=== PATIENT | female | born 1975 | race African-American/Black ===

== ENCOUNTER 2016-06-23 09:39 | Emergency (ER) | payer MEDICAID ==
[~2016-06-23] VITALS: Ht 167.6 cm; Wt 63.5 kg
[~2016-06-23 09:39] MED LIST: HYDROCODON-ACE1 EA13 ORAL; NITROFURANTOIN100 M2 ORAL; NKM; PROTONIX40 MG ORAL; ZOFRAN ODT4 MG ORAL
[2016-06-23] MEDS ORDERED: Acetaminophen 500mg (ES) tab PO ONE (10:00)
[2016-06-23 10:15] VITALS: BP 115/73
--- NOTE | 2016-06-23 11:35 | Diagnostic Imaging Report ---
Indications: Headache, abrasion to left side of the forehead, blunt trauma Technique: Spiral images obtained through the facial bones. No IV contrast utilized. Multiplanar reconstructions were generated.Total dose length product 546 mGycm. CTDIvol(s) 28 mGy. Dose reduction achieved using automated exposure control Comparison: None Findings: A small gas bubble is seen in the soft tissues superior and lateral to the left orbit. There is some associated soft tissue swelling in the periorbital region. No underlying fracture is demonstrated. There is a fracture deformity of the nasal bone, involving the tip and the left side, which is minimally displaced. No associated nasal septal fracture. There is mild leftward nasal septal deviation anteriorly. No other evidence of acute fracture. No worrisome sinus opacification. The mandible is intact. There appear to be dental caries involving the left first maxillary premolar. The remainder of the dentition appears intact. The optic globes appear to be intact. Retroseptal orbits are unremarkable. The included intracranial structures are unremarkable. Impression: Evidence of left periorbital soft tissue laceration Slight left-sided and central nasal bone fracture deformity lay with clinical findings Dental caries of the left first maxillary premolar The CT scanner at [facility] is accredited by the [employer] and the scans are performed using protocols designed to limit radiation exposure to as low as reasonably achievable to attain images of sufficient resolution adequate for diagnostic evaluation.
[2016-06-23 11:58] VITALS: BP 120/75
[2016-06-23] MEDS ORDERED: IBUPROFEN600 MG ORAL (12:20)
[2016-06-23] MEDS ORDERED: HM DOUBLE ANT28.4 G1 TP (12:20)
[2016-06-23] MEDS ORDERED: ACETAMINOPHEN-1 EAC1 ORAL (12:20)
[2016-06-23 12:25] VITALS: BP 120/75
--- NOTE | 2016-06-23 13:32 | Diagnostic Imaging Report ---
Indication: H/A head trauma Technique: Continuous helical CT scanning of the head was performed without intravenous contrast material. Axial and coronal 5 mm sections were generated. Radiation dose was minimized using automated exposure control Dose: Total Dose Length Product - DLP [address] Dose Index - CTDIvol(s) 70.38 mGy. Comparison: None Findings: The ventricular system is normal in size and configuration. There is no shift of midline structures. No abnormal extra-axial fluid collections are noted. There is no evidence of intracerebral bleeding. No other abnormal high or low density areas are noted within the brain. A small gas bubble is seen in the left periorbital soft tissues, consistent with penetrating trauma. Impression: Negative for acute intracranial bleed or mass effect. Evidence of left periorbital soft tissue trauma The CT scanner at [facility] is accredited by the [employer] and the scans are performed using protocols designed to limit radiation exposure to as low as reasonably achievable to attain images of sufficient resolution adequate for diagnostic evaluation.
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
== END 2016-06-23 12:25 | disposition home or self-care (01) ==
LOC: EMR 10:31
DX: S02.2XXA Fracture of nasal bones, initial encounter for closed fracture (principal); S00.212A Abrasion of left eyelid and periocular area, initial encounter; Y04.2XXA Assault by strike against or bumped into by another person, initial encounter; Y92.009 Unspecified place in unspecified non-institutional (private) residence as the place of occurrence of the external cause; K02.9 Dental caries, unspecified
CPT/HCPCS: 70450; 70486; 99284

== ENCOUNTER 2016-10-18 21:52 | Emergency (ER) | payer MEDICAID ==
[~2016-10-18] VITALS: Ht 167.6 cm; Wt 65.8 kg
[~2016-10-18 21:52] MED LIST changes: +ACETAMINOPHEN-1 EAC1 ORAL; +HM DOUBLE ANT28.4 G1 TP; +IBUPROFEN600 MG ORAL
[2016-10-18 22:21] VITALS: BP 95/64
[2016-10-18] MEDS ORDERED: Morphine Sulfate 4mg/ml Inj IVP ONE (22:30)
--- NOTE | 2016-10-18 22:37 | Emergency Room Report ---
History of Present Illness General Chief Complaint: Abdominal Pain Source: Patient Present Illness HPI Is a 40-year-old female with no significant past medical history except for one episode pancreatitis in the past. She presents with chief complaint abdominal pain. Onset was 6 hours ago. Gradual in nature. No localized to the right lower caught her in. Has nausea but no vomiting. Small amount of diarrhea. Pain is crampy and sharp. 8/10. No radiation. Nothing made it better. Nothing made it worse. No appetite. Did not eat dinner. Allergies: Coded Allergies: No Known Allergies (Unverified , 01/01/13) Patient History Past Medical History: see triage record, old chart reviewed Past Surgical History: other Pertinent Family History: none Social History: Reports: alcohol use Last Menstrual Period: 10/12/16 Now: No Immunizations: other Reviewed Nursing Documentation: PMH: Agreed, PSxH: Agreed Nursing Documentation-PMH Past Medical History: No History, Except For Hx Cardiac Problems: No Hx Cancer: No Hx Neurological Problems: No Review of Systems Eye: Denies: blurred vision, eye pain ENT: Denies: ear pain, nose congestion, throat swelling Respiratory: Denies: cough, shortness of breath Cardiovascular: Denies: chest pain, palpitations Gastrointestinal: Reports: abdominal pain, Denies: diarrhea, nausea, vomiting Musculoskeletal: Denies: back pain, joint pain Skin: Denies: rash Neurological: Denies: headache, numbness Endocrine: Denies: increased thirst, increased urine Hematologic/Lymphatic: Denies: easy bruising All Other Systems: negative except mentioned in HPI Physical Exam Vital Signs Date Time Temp Pulse Resp B/P Pulse Ox O2 Delivery O2 Flow Rate FiO2 10/18/16 22:02 98.2 78 20 95/64 97 Room Air vitals unremarkable Sp02 EP Interpretation: reviewed, normal General Appearance: well appearing, no apparent distress, alert Head: normocephalic, atraumatic Eyes: bilateral eye EOMI, bilateral eye PERRL ENT: hearing grossly normal, normal pharynx Neck: full range of motion, supple, no meningismus Respiratory: chest non-tender, lungs clear, normal breath sounds Cardiovascular #1: regular rate, rhythm, no murmur Gastrointestinal: normal bowel sounds, no mass, no organomegaly, no bruit, non- distended, tenderness - Right lower quadrant Musculoskeletal: back normal, gait/station normal, normal range of motion Psychiatric: mood/affect normal Skin: warm/dry Medical Decision Making Diagnostic Impression: Primary Impression: Abdominal pain of unknown etiology Additional Impression: UTI (lower urinary tract infection) ER Course Patient with abdominal pain. This may be an a descending UTI. No evidence of appendicitis. Pain is better now. She is tolerating by mouth challenge. No evidence of acute abdomen. We'll discharge home. Lab Results Impression labs unremarkable Last Vital Signs Date Time Temp Pulse Resp B/P Pulse Ox O2 Delivery O2 Flow Rate FiO2 10/18/16 22:21 98.2 78 20 95/64 97 Room Air Status: improved Disposition: HOME, SELF-CARE Condition: Stable Scripts Ibuprofen* (MOTRIN*) 600 Mg Tablet 600 MG ORAL THREE TIMES A DAY, #30 TAB 0 Refills Prov: CLEMENCIA MARIN M.D. 10/19/16 Cephalexin* (KEFLEX*) 500 Mg Capsule 500 MG ORAL TID, #21 CAP 0 Refills Prov: CLEMENCIA MARIN M.D. 10/19/16 Additional Instructions: Followup with your DrPrabhakar in 2-3 days. Return if symptom worsen. CLEMENCIA MARIN M.D. Oct 18, 2016 22:37
[2016-10-18 22:50] LABS: BASOPHILS % (AUTO) 1.6 % (0.0-2.0); EOSINOPHILS % (AUTO) 2.1 % (0.0-3.0); LYMPHOCYTES % (AUTO) 27.7 % (20.0-45.0); MEAN CORPUSCULAR HGB CONC 32.8 G/DL (32.0-36.0); MEAN CORPUSCULAR VOLUME 91 FL (80-99); MEAN PLATELET VOLUME 7.5 FL (6.5-10.1); MONOCYTES % (AUTO) 10.6 % (1.0-10.0); NEUTROPHILS % (AUTO) 57.9 % (45.0-75.0); PLATELET COUNT 202 K/UL (150-450); RED BLOOD COUNT 4.02 M/UL (4.20-5.40); RED CELL DISTRIBUTION WIDTH 12.1 % (11.6-14.8); WHITE BLOOD COUNT 8.6 K/UL (4.8-10.8)
[2016-10-18 23:00] VITALS: BP 104/59
[2016-10-18 23:00] LABS: APPEARANCE,URINE CLEAR; KETONES,URINE 1+ (NEGATIVE); LEUKOCYTE ESTERASE ,URINE 3+ (NEGATIVE); NITRITE,URINE NEGATIVE (NEGATIVE); PH,URINE 5 (4.5-8.0); PROTEIN,URINE 3+ (NEGATIVE); UROBILINOGEN,URINE NORMAL MG/DL (0.0-1.0)
[2016-10-18 23:02] LABS: ALANINE AMINOTRANSFERASE 15 U/L (3-33); ALBUMIN/GLOBULIN RATIO 1.6 (1.0-2.7); ANION GAP 13 (5-15); ASPARTATE AMINO TRANSFERASE 19 U/L (5-40); CALCIUM 9.2 mg/dL (8.6-10.2); CARBON DIOXIDE 24 mEQ/L (20-30); CHLORIDE 101 mEQ/L (98-107); CREATININE 0.8 mg/dL (0.5-0.9); GLOMERULAR FILTRATION RATE > 60 mL/min (>60); HEMOLYSIS 3; LIPASE 28 U/L (< 60); POTASSIUM 3.6 mEQ/L (3.4-4.9); SODIUM 138 mEQ/L (135-145); TOTAL PROTEIN 6.7 g/dL (6.6-8.7)
[2016-10-18 23:08] LABS: BACTERIA,URINE MODERATE /HPF; RBC,URINE 20-30 /HPF (0 - 2); SQUAMOUS EPITHELIAL CELL,UR FEW /LPF (NONE/OCC); WBC,URINE 15-20 /HPF (0 - 2)
[2016-10-18] MEDS ORDERED: cefTRIAXone 1 GM in NS 55 ML IVPB ONE (23:30)
[2016-10-19] MEDS ORDERED: IBUPROFEN600 MG ORAL (01:00)
[2016-10-19] MEDS ORDERED: KEFLEX500 MG ORAL (01:00)
[2016-10-19 01:09] VITALS: BP 104/59
[2016-10-19 01:10] VITALS: BP 104/59
--- NOTE | 2016-10-19 10:05 | Diagnostic Imaging Report ---
Indications: Abdominal pain Technique: Continuous helical CT imaging of the abdomen and pelvis was performed with automatic exposure control following administration of nonionic IV contrast only, on a Siemens sensation [address] scanner. Axial, coronal, sagittal images were reconstructed at 5 mm slice thickness. No oral contrast was administered per requesting physician's order, despite no contraindications listed in either submitted clinical data or tech note.. CTDI volume(s): 14 mGy Total DLP: 720 mGy-cm Findings: Comparison: None Lack of oral contrast limits evaluation of gastrointestinal tract, nondilated throughout. Mural thickening of one or more distal small bowel loops not excludable. Appendix unremarkable. Limited evaluation of left-sided colon due to poor distention. No adjacent stranding, extraluminal gas or fluid collections identified, aside from minimal pelvic free fluid. Heterogeneous uterine myometrium. 1 cm cystic-appearing lesion left adnexal region with mild adjacent free fluid. Scattered arterial mural calcification without obvious flow-limiting stenosis or occlusion. Liver, gallbladder, pancreas, spleen, adrenal glands, kidneys, unopacified ureters and urinary bladder, right adnexal region, retroperitoneum, mesentery, remainder visualized abdominopelvic anatomy unremarkable. Small pleural-based linear densities in both lung bases. No focal skeletal abnormalities are identified. IMPRESSION: Questionable distal small bowel wall thickening-query enteritis. Left adnexal cystic lesion likely physiologic ovarian Minimal pelvic free fluid, may be due to either of above uterine myometrial heterogeneity, nonspecific. Consider fibroids, adenomyosis, inflammation. Correlate clinically. Consider ultrasound correlation. This finding not described in [facility] preliminary report, minor discrepancy. No other evidence of acute abdominopelvic disease, with limitation as described. Subtle but potentially significant abnormalities the gastrointestinal tract may be missed. Repeat CT scan with full oral and IV contrast preparation recommended for more complete evaluation, as clinically indicated Minimal pulmonary bibasal subsegmental atelectasis This otherwise correlates with [facility] preliminary report.
== END 2016-10-19 01:10 | disposition home or self-care (01) ==
LOC: EMR 22:15
DX: R10.9 Unspecified abdominal pain (principal); N39.0 Urinary tract infection, site not specified
CPT/HCPCS: 36415; 74177; 80053; 81003; 81025; 83690; 85025; 85610; 85730; 87086; 87181; 96374; 96375; 99284; J0696; J2270; J2405; Q9967

== ENCOUNTER 2016-12-09 10:19 | Emergency (ER) | payer MEDICAID ==
[~2016-12-09] VITALS: Ht 167.6 cm; Wt 65.8 kg
[~2016-12-09 10:19] MED LIST changes: +KEFLEX500 MG ORAL
[2016-12-09] MEDS ORDERED: NKM (10:32)
[2016-12-09 10:56] VITALS: BP 115/82
[2016-12-09 11:17] VITALS: BP 115/82
--- NOTE | 2016-12-09 12:16 | Emergency Room Report ---
History of Present Illness General Chief Complaint: Vaginal Source: Patient Present Illness HPI 40-year-old female no significant past medical history presenting with bump to the left side of the vagina for 3 days. States that she randomly noticed it, however denies any pain fever purulent drainage. Patient states that she is out of town and does want to get checked. No history of STDs, monogamous with one partner for many years Allergies: Coded Allergies: No Known Allergies (Unverified , 01/01/13) Patient History Past Medical History: see triage record Past Surgical History: none Pertinent Family History: none Last Menstrual Period: 11/22/2016 Reviewed Nursing Documentation: PMH: Agreed, PSxH: Agreed Nursing Documentation-PMH Past Medical History: No Stated History Hx Cardiac Problems: No Hx Cancer: No Hx Neurological Problems: No Review of Systems All Other Systems: negative except mentioned in HPI Physical Exam Vital Signs Date Time Temp Pulse Resp B/P (MAP) Pulse Ox O2 Delivery O2 Flow Rate FiO2 12/09/16 10:29 98.8 73 16 115/82 99 Room Air Sp02 EP Interpretation: reviewed, normal General Appearance: normal inspection, well appearing, no apparent distress, alert, GCS 15, non-toxic Head: normocephalic, atraumatic Eyes: bilateral eye normal inspection, bilateral eye PERRL, bilateral eye EOMI ENT: normal ENT inspection, normal pharynx, normal voice, moist mucus membranes Neck: normal inspection, full range of motion, supple Respiratory: normal inspection, lungs clear, normal breath sounds, no respiratory distress, no retraction, no wheezing, speaking full sentences, chest symmetrical Cardiovascular #1: normal inspection, regular rate, rhythm, no edema, normal capillary refill Cardiovascular #2: 2+ radial (R), 2+ radial (L) Gastrointestinal: normal inspection, non tender, soft, non-distended, no guarding Genitourinary: other - Left upper labia majora, with a 1 cm mobile rubbery mass , nontender, and no overlying erythema Musculoskeletal: normal inspection, back normal, normal range of motion, non- tender Neurologic: normal inspection, alert, oriented x3, responsive, motor strength/ tone normal, sensory intact, normal gait, speech normal Psychiatric: normal inspection, judgement/insight normal, memory normal Skin: normal inspection, normal color, no rash, warm/dry, well hydrated, normal turgor Medical Decision Making Diagnostic Impression: Primary Impression: Cyst of vagina ER Course 40-year-old female with left labia majora pump DDX: Appears to be a benign cyst versus lipoma at this time does not appear to be an abscess Plan: No intervention ER course: Patient has remained stable during ED stay. Disposition: Patient is to be discharged to home. Patient is instructed to follow up with their primary care doctor within 5 days. Patient is instructed to follow up with [facility] within 3 days. Strict return precautions discussed with patient such as fever, chills, worsening/severe pain, nausea, vomiting, which may indicate severe illness. Patient verbalizes understanding and agrees with plan. Please note that this Emergency Department Report was dictated using [employer] specialty foreign food technology software, occasionally this can lead to erroneous entry secondary to interpretation by the dictation equipment Last Vital Signs Date Time Temp Pulse Resp B/P (MAP) Pulse Ox O2 Delivery O2 Flow Rate FiO2 12/09/16 11:17 98.8 78 16 115/82 99 Room Air Disposition: HOME, SELF-CARE Condition: Stable Referrals: [facility],REFERRING (PCP) Patient Instructions: Bartholin Cyst or Abscess Additional Instructions: Please followup with your [facility] in one week Van Serrano M.D. Dec 09, 2016 12:16
== END 2016-12-09 11:20 | disposition home or self-care (01) ==
LOC: EMR 11:05
DX: N89.8 Other specified noninflammatory disorders of vagina (principal)
CPT/HCPCS: 99282

== ENCOUNTER 2016-12-16 10:42 | Emergency (ER) | payer MEDICAID ==
[~2016-12-16] VITALS: Ht 167.6 cm; Wt 65.8 kg
[2016-12-16 11:06] VITALS: BP 114/80
[2016-12-16 11:38] VITALS: BP 114/80
--- NOTE | 2016-12-16 13:26 | Emergency Room Report ---
History of Present Illness General Chief Complaint: Skin Rash/Abscess Source: Patient, Medical Record Present Illness HPI 40-year-old female no significant past history presenting with lumps in back of scalp and right arm for a few days. Patient states they're painful. No purulent drainage. States that she shaves her underarms. No fever or chills Allergies: Coded Allergies: No Known Allergies (Unverified , 01/01/13) Patient History Past Medical History: see triage record Past Surgical History: none Pertinent Family History: none Last Menstrual Period: 11/22/16 Reviewed Nursing Documentation: PMH: Agreed, PSxH: Agreed Nursing Documentation-PM Past Medical History: No History, Except For Hx Cardiac Problems: No Hx Cancer: No Hx Neurological Problems: No Review of Systems All Other Systems: negative except mentioned in HPI Physical Exam Vital Signs Date Time Temp Pulse Resp B/P (MAP) Pulse Ox O2 Delivery O2 Flow Rate FiO2 12/16/16 10:50 97.5 86 18 114/80 100 Room Air Sp02 EP Interpretation: reviewed, normal General Appearance: normal inspection, well appearing, no apparent distress, alert, GCS 15, non-toxic Head: normocephalic, atraumatic Eyes: bilateral eye normal inspection, bilateral eye PERRL, bilateral eye EOMI ENT: normal ENT inspection, normal pharynx, normal voice, moist mucus membranes Neck: normal inspection, full range of motion, supple Respiratory: normal inspection, lungs clear, normal breath sounds, no respiratory distress, no retraction, no wheezing, speaking full sentences, chest symmetrical Cardiovascular #1: normal inspection, regular rate, rhythm, no edema, normal capillary refill Cardiovascular #2: 2+ radial (R), 2+ radial (L) Gastrointestinal: normal inspection, non tender, soft, non-distended, no guarding Musculoskeletal: normal inspection, back normal, normal range of motion, non- tender Neurologic: normal inspection, alert, oriented x3, responsive, motor strength/ tone normal, sensory intact, normal gait, speech normal Psychiatric: normal inspection, judgement/insight normal, memory normal Skin: no rash, warm/dry, well hydrated, normal turgor, other - Tiny less than 1 cm abscess is noted right under arm, about 3, no purulent drainage, 1 1 x 1 cm abscess noted back of scalp, tender palpation, no purulent drainage Medical Decision Making Diagnostic Impression: Primary Impression: Abscess ER Course 40-year-old female with small abscesses noted right under arm and back of scalp Plan: None the emergency room At this time none of them are big enough for incision and drainage ER course: Patient has remained stable during ED stay. Disposition: Patient is to be discharged to home. Patient is instructed to follow up with their primary care doctor within 5 days for wound recheck Strict return precautions discussed with patient such as fever, chills, worsening/severe pain, nausea, vomiting, which may indicate severe illness. Patient verbalizes understanding and agrees with plan. Please note that this Emergency Department Report was dictated using [employer] receiver technology software, occasionally this can lead to erroneous entry secondary to interpretation by the dictation equipment Last Vital Signs Date Time Temp Pulse Resp B/P (MAP) Pulse Ox O2 Delivery O2 Flow Rate FiO2 12/16/16 11:38 97.5 75 18 114/80 100 Room Air Disposition: HOME, SELF-CARE Condition: Stable Referrals: [facility],REFERR[facility] (PCP) Patient Instructions: Abscess Additional Instructions: Please followup with your primary care doctor in one week Please followup with the grid trimmer Please return if you're having rapid spread of rash, purulent drainage, fever or chills Van Serrano M.D. Dec 16, 2016 13:26
== END 2016-12-16 11:40 | disposition home or self-care (01) ==
LOC: EMR 11:26
DX: L02.413 Cutaneous abscess of right upper limb (principal)
CPT/HCPCS: 99282

== ENCOUNTER 2017-03-03 00:43 | Emergency (ER) | payer MEDICAID ==
[~2017-03-03] VITALS: Ht 167.6 cm; Wt 63.5 kg
[2017-03-03 01:05] VITALS: BP 138/78
--- NOTE | 2017-03-03 02:46 | Emergency Room Report ---
History of Present Illness General Chief Complaint: Abdominal Pain Source: Medical Record Present Illness HPI Is a 40-year-old female well-known to this ER department. She presents with chief complaint of abdominal pain. She left prior to me seeing her. According to security, she got dropped off by [employer] at the corner of campus. She walked calmly to the ER triage area. She looked inside and then walked in and start doubling over screaming in pain. She was really histrionic. The ER was fully she cannot be taken back right away. She then walked outside without a problem. And came back and acting dramatically again. After waiting an hour half she decided to leave. I did not see the patient. Allergies: Coded Allergies: No Known Allergies (Unverified , 01/01/13) Patient History Past Medical History: see triage record, old chart reviewed Past Surgical History: other Pertinent Family History: none Social History: Denies: smoking Last Menstrual Period: Jan Immunizations: other Reviewed Nursing Documentation: PMH: Agreed, PSxH: Agreed Nursing Documentation-PMH Hx Cardiac Problems: No Hx Cancer: No Hx Neurological Problems: No Physical Exam Vital Signs Date Time Temp Pulse Resp B/P (MAP) Pulse Ox O2 Delivery O2 Flow Rate FiO2 03/03/17 00:49 98.2 105 16 138/78 96 Room Air Medical Decision Making Diagnostic Impression: Primary Impression: Abdominal pain Qualified Codes: R10.84 - Generalized abdominal pain Last Vital Signs Date Time Temp Pulse Resp B/P (MAP) Pulse Ox O2 Delivery O2 Flow Rate FiO2 03/03/17 00:49 98.2 105 16 138/78 96 Room Air Status: improved Disposition: LEFT W/OUT BEING SEEN Condition: Stable CLEMENCIA MARIN M.D. Mar 03, 2017 02:46
== END 2017-03-03 05:04 | disposition left against medical advice (07) ==
LOC: EMR 02:45
DX: R10.9 Unspecified abdominal pain (principal); Z53.21 Procedure and treatment not carried out due to patient leaving prior to being seen by health care provider
CPT/HCPCS: 99281

== ENCOUNTER 2017-04-16 16:03 | Emergency (ER) | payer MEDICAID ==
[~2017-04-16] VITALS: Ht 172.7 cm; Wt 58.5 kg
[2017-04-16 16:35] VITALS: BP 100/56
[2017-04-16] MEDS ORDERED: Acetaminophen 500mg (ES) tab ORAL ONE (17:00)
[2017-04-16 17:21] LABS: APPEARANCE,URINE SLIGHTLY CLOUDY; BILIRUBIN, URINE NEGATIVE (NEGATIVE); GLUCOSE, URINE (UA) NEGATIVE (NEGATIVE); KETONES,URINE 4+ (NEGATIVE); LEUKOCYTE ESTERASE ,URINE NEGATIVE (NEGATIVE); NITRITE,URINE NEGATIVE (NEGATIVE); PH,URINE 5 (4.5-8.0); PROTEIN,URINE 2+ (NEGATIVE); UROBILINOGEN,URINE 1 MG/DL (0.0-1.0)
[2017-04-16 17:22] LABS: COLOR,URINE YELLOW
[2017-04-16 17:31] LABS: BASOPHILS % (AUTO) 2.5 % (0.0-2.0); HEMATOCRIT 40.3 % (37.0-47.0); HEMOGLOBIN 13.4 G/DL (12.0-16.0); LYMPHOCYTES % (AUTO) 9.2 % (20.0-45.0); MEAN CORPUSCULAR VOLUME 87 FL (80-99); MONOCYTES % (AUTO) 12.6 % (1.0-10.0); NEUTROPHILS % (AUTO) 75.7 % (45.0-75.0); PLATELET COUNT 108 K/UL (150-450); RED BLOOD COUNT 4.61 M/UL (4.20-5.40); WHITE BLOOD COUNT 4.4 K/UL (4.8-10.8)
--- NOTE | 2017-04-16 17:35 | Emergency Room Report ---
History of Present Illness General Chief Complaint: Flu Like Symptoms Source: Patient Present Illness HPI 41-year-old female, history of hyperthyroidism, presenting with fever chills, left lower back pain, urinary frequency, cough. Patient states that she has had a dry cough. Taking left lower back pain. Nondistended any burning on urination. Denies any headache neck pain abdominal pain nausea vomiting or diarrhea. No chest pain or shortness of breath No leg weakness, no urinary retention, no history of IV drug abuse Allergies: Coded Allergies: No Known Allergies (Unverified , 01/01/13) Patient History Past Medical History: see triage record Past Surgical History: none Pertinent Family History: none Last Menstrual Period: 01/2018 Reviewed Nursing Documentation: PMH: Agreed, PSxH: Agreed Nursing Documentation-PMH Past Medical History: No History, Except For Hx Cardiac Problems: No - Hyperthyroidism Hx Hypertension: No Hx Pacemaker: No Hx Asthma: No Hx COPD: No Hx Diabetes: No Hx Cancer: No Hx Gastrointestinal Problems: Yes - Gastroenteritis,Pancreatitis Hx Dialysis: No History Of Psychiatric Problem: No Hx Neurological Problems: No Hx Cerebrovascular Accident: No Hx Seizures: No Review of Systems All Other Systems: negative except mentioned in HPI Physical Exam Vital Signs Date Time Temp Pulse Resp B/P (MAP) Pulse Ox O2 Delivery O2 Flow Rate FiO2 04/16/17 16:25 101.9 101 18 95/61 95 Room Air 101.8 Sp02 EP Interpretation: reviewed, normal General Appearance: alert, GCS 15, non-toxic, mild distress Head: normocephalic, atraumatic Eyes: bilateral eye normal inspection, bilateral eye PERRL, bilateral eye EOMI ENT: normal ENT inspection, normal pharynx, normal voice, moist mucus membranes Neck: normal inspection, full range of motion, supple Respiratory: normal inspection, lungs clear, normal breath sounds, no respiratory distress, no retraction, no wheezing, speaking full sentences, chest symmetrical Cardiovascular #1: normal inspection, regular rate, rhythm, normal capillary refill Cardiovascular #2: 2+ radial (R), 2+ radial (L) Gastrointestinal: normal inspection, non tender, soft, non-distended, no guarding Genitourinary: no CVA tenderness, no vertebral tenderness Musculoskeletal: normal inspection, back normal, normal range of motion, non- tender, other - nontender back Neurologic: normal inspection, alert, oriented x3, responsive, motor strength/ tone normal, sensory intact, normal gait, speech normal Psychiatric: normal inspection, judgement/insight normal, memory normal Skin: normal inspection, normal color, no rash, warm/dry, well hydrated, normal turgor Medical Decision Making Diagnostic Impression: Primary Impression: Viral syndrome Additional Impression: Flank pain ER Course 41-year-old female, fever chills, urinary frequency, left-sided back pain DDX: Pyelonephritis, UTI Viral syndrome Patient not exhibiting any neurological signs or symptoms to consider epidural abscess, cauda equina syndrome Plan: Obtain labs, ua, ucx Tylenol, IV fluids ER course: Patient has remained stable during ED stay. given tylenol nontoxic appearing ambulating in ED feels much better. conversing with family CT performed to r/o kidney stones. no stones or abnormalities DCed home Disposition: Patient is to be discharged to home. Strict return precautions discussed with patient such as fever, chills, worsening/severe pain, chest pain, SOB, nausea, vomiting, which may indicate severe illness. Patient verbalizes understanding and agrees with plan. Please note that this Emergency Department Report was dictated using [employer] director technology software, occasionally this can lead to erroneous entry secondary to interpretation by the dictation equipment Laboratory Tests Test 04/16/17 16:54 04/16/17 17:05 Urine Color Yellow Urine Appearance Slightly cloudy Urine pH 5 (4.5-8.0) Urine Specific [place] 1.025 (1.005-1.035) Urine Protein 2+ (NEGATIVE) H Urine Glucose (UA) Negative (NEGATIVE) Urine Ketones 4+ (NEGATIVE) H Urine Occult Blood 3+ (NEGATIVE) H Urine Nitrite Negative (NEGATIVE) Urine Bilirubin Negative (NEGATIVE) Urine Urobilinogen 1 MG/DL (0.0-1.0) H Urine Leukocyte Esterase Negative (NEGATIVE) Urine RBC 2-4 /HPF (0 - 2) H Urine WBC 2-4 /HPF (0 - 2) Urine Squamous Epithelial Cells Many /LPF (NONE/OCC) H Urine Bacteria Few /HPF (NONE) White Blood Count 4.4 K/UL (4.8-10.8) L Red Blood Count 4.61 M/UL (4.20-5.40) Hemoglobin 13.4 G/DL (12.0-16.0) Hematocrit 40.3 % (37.0-47.0) Mean Corpuscular Volume 87 FL (80-99) Mean Corpuscular Hemoglobin 29.0 PG (27.0-31.0) Mean Corpuscular Hemoglobin Concent 33.2 G/DL (32.0-36.0) Red Cell Distribution Width 11.0 % (11.6-14.8) L Platelet Count 108 K/UL (150-450) L Mean Platelet Volume 9.0 FL (6.5-10.1) Neutrophils (%) (Auto) 75.7 % (45.0-75.0) H Lymphocytes (%) (Auto) 9.2 % (20.0-45.0) L Monocytes (%) (Auto) 12.6 % (1.0-10.0) H Eosinophils (%) (Auto) 0.0 % (0.0-3.0) Basophils (%) (Auto) 2.5 % (0.0-2.0) H Sodium Level 137 MMOL/L (136-145) Potassium Level 3.3 MMOL/L (3.5-5.1) L Chloride Level 101 MMOL/L (98-107) Carbon Dioxide Level 26 MMOL/L (21-32) Anion Gap 10 mmol/L (5-15) Blood Urea Nitrogen 12 mg/dL (7-18) Creatinine 0.9 MG/DL (0.55-1.30) Estimate Glomerular Filtration Rate > 60 mL/min (>60) Glucose Level 110 MG/DL (74-106) H Calcium Level 9.2 MG/DL (8.5-10.1) Total Bilirubin 0.4 MG/DL (0.2-1.0) Aspartate Amino Transferase (AST) 48 U/L (15-37) H Alanine Aminotransferase (ALT) 41 U/L (12-78) Alkaline Phosphatase 88 U/L (46-116) Total Protein 7.7 G/DL (6.4-8.2) Albumin 3.8 G/DL (3.4-5.0) Globulin 3.9 g/dL Albumin/Globulin Ratio 1.0 (1.0-2.7) Last Vital Signs Date Time Temp Pulse Resp B/P (MAP) Pulse Ox O2 Delivery O2 Flow Rate FiO2 04/16/17 17:00 101.9 04/16/17 16:35 101 18 Room Air 04/16/17 16:35 100/56 99 Disposition: HOME, SELF-CARE Condition: Improved Referrals: [facility],REFERRING (PCP) Van Serrano M.D. Apr 16, 2017 17:35
[2017-04-16] MEDS ORDERED: Ketorolac 30mg Inj IV ONE (18:00)
[2017-04-16 18:10] LABS: ANION GAP 10 mmol/L (5-15); BLOOD UREA NITROGEN 12 mg/dL (7-18); CALCIUM 9.2 MG/DL (8.5-10.1); CARBON DIOXIDE 26 MMOL/L (21-32); CHLORIDE 101 MMOL/L (98-107); CREATININE 0.9 MG/DL (0.55-1.30); POTASSIUM 3.3 MMOL/L (3.5-5.1); SODIUM 137 MMOL/L (136-145)
[2017-04-16 18:15] LABS: ALANINE AMINOTRANSFERASE 41 U/L (12-78); ALBUMIN 3.8 G/DL (3.4-5.0); ALKALINE PHOSPHATASE 88 U/L (46-116); ASPARTATE AMINO TRANSFERASE 48 U/L (15-37); BILIRUBIN,TOTAL 0.4 MG/DL (0.2-1.0)
[2017-04-16 18:47] VITALS: BP 105/62
[2017-04-16 20:40] VITALS: BP 93/63
[2017-04-16 21:50] VITALS: BP 93/63
--- NOTE | 2017-04-17 09:40 | Diagnostic Imaging Report ---
Indication: Abdominal pain Technique: Continuous helical transaxial imaging of the abdomen and pelvis was obtained from the lung bases to the pubic symphysis. No intravenous contrast was administered. Coronal 2-D reformats were also obtained. Automatic Exposure Control was utilized. Total Dose length Product (DLP): 512.[address] Dose Index Volume (CTDIvol): 9.87 mGy Comparison: none Findings: There is a small amount of free fluid within the pelvis which could be physiologic. There is no nephrolithiasis or hydronephrosis. Mildly distended small bowel loops primarily fluid-filled noted throughout the abdomen. Findings could be due to enteritis or ileus. Please correlate clinically. Appendix is normal. Trace calcification of the arterial structures noted. At the left lung base there is a ill-defined infiltrate present. Pneumonia is suspected. Please correlate clinically. IMPRESSION: Possible gastroenteritis. Please correlate clinically. Pneumonia suspected left lung base. Please correlate clinically Other incidentals as above. [facility] has communicated the preliminary results to the Emergency Department. Their findings are largely concordant with this report. The CT scanner at [facility] is accredited by the [employer] and the scans are performed using dose optimization techniques as appropriate to a performed exam including Automatic Exposure control.
--- NOTE | 2017-04-17 11:30 | Diagnostic Imaging Report ---
Indication: Cough Comparison: None A single view chest radiograph was obtained. Findings: Bones are unremarkable. Heart size normal. Lungs are clear. IMPRESSION: No acute disease
== END 2017-04-16 21:50 | disposition home or self-care (01) ==
LOC: EMR 16:55
DX: M54.5 Low back pain (principal); B34.9 Viral infection, unspecified; E05.90 Thyrotoxicosis, unspecified without thyrotoxic crisis or storm
CPT/HCPCS: 36415; 71045; 74176; 80053; 81003; 85025; 96361; 96374; 99284; J1885

== ENCOUNTER → 2018-04-01 | Emergency (ER) | payer MEDICAID ==
[~2018-04-01] VITALS: Ht 167.6 cm; Wt 63.5 kg
[~2018-04-01] MED LIST changes: +ALPRAZOLAM0.25 MG ORAL; +ZOFRAN4 MG ORAL
[2018-04-01 20:51] VITALS: BP 131/70
--- NOTE | 2018-04-01 21:06 | Emergency Room Report ---
History of Present Illness General Chief Complaint: Abdominal Pain Source: Patient Present Illness HPI 42-year-old female well-known to this ER. She's been here multiple times in the past. She presents with chief complaint abdominal pain. She was here earlier for multiple different complaints. She's been here for the same thing with abdominal pain. She said she felt nauseous. No nausea no vomiting. No fever or chills. She said she has a history of pancreatitis but her lipase in the past was barely elevated. Denies any other complaint. Allergies: Coded Allergies: No Known Allergies (Unverified , 01/01/13) Patient History Past Medical History: see triage record, old chart reviewed Past Surgical History: none Pertinent Family History: none Social History: Denies: smoking Last Menstrual Period: 02/2017 Now: No Immunizations: other Reviewed Nursing Documentation: PMH: Agreed; PSxH: Agreed Nursing Documentation-PMH Past Medical History: No History, Except For Hx Cardiac Problems: No - Hyperthyroidism Hx Hypertension: No Hx Pacemaker: No Hx Asthma: No Hx COPD: No Hx Diabetes: No Hx Cancer: No Hx Gastrointestinal Problems: Yes - Gastroenteritis,Pancreatitis Hx Dialysis: No Hx Neurological Problems: No Hx Cerebrovascular Accident: No Hx Seizures: No Review of Systems Eye: Denies: eye pain, blurred vision ENT: Denies: ear pain, nose congestion, throat swelling Respiratory: Denies: cough, shortness of breath Cardiovascular: Denies: chest pain, palpitations Gastrointestinal: Reports: abdominal pain; Denies: diarrhea, nausea, vomiting Musculoskeletal: Denies: back pain, joint pain Skin: Denies: rash Neurological: Denies: headache, numbness Endocrine: Denies: increased thirst, increased urine Hematologic/Lymphatic: Denies: easy bruising All Other Systems: negative except mentioned in HPI Physical Exam Vital Signs Date Time Temp Pulse Resp B/P (MAP) Pulse Ox O2 Delivery O2 Flow Rate FiO2 04/01/18 20:44 98.2 47 24 137/71 95 Room Air vitals normal Sp02 EP Interpretation: reviewed, normal General Appearance: well appearing, no apparent distress, alert, other - Very histrionic Head: normocephalic, atraumatic Eyes: bilateral eye PERRL, bilateral eye EOMI ENT: hearing grossly normal, normal pharynx Neck: full range of motion, supple, no meningismus Respiratory: chest non-tender, lungs clear, normal breath sounds Cardiovascular #1: regular rate, rhythm, no murmur Gastrointestinal: normal bowel sounds, non tender, no mass, no organomegaly, no bruit, non-distended Musculoskeletal: back normal, gait/station normal, normal range of motion Psychiatric: mood/affect normal Skin: warm/dry Medical Decision Making Diagnostic Impression: Primary Impression: Abdominal pain of unknown etiology ER Course Patient presents with abdominal pain but on my exam she has no pain. Abdomen is soft. Good bowel sounds. No evidence of any acute abdomen. I suspect a psychiatric component for this pain. We'll discharge home. Last Vital Signs Date Time Temp Pulse Resp B/P (MAP) Pulse Ox O2 Delivery O2 Flow Rate FiO2 04/01/18 20:44 98.2 47 24 137/71 95 Room Air Status: unchanged Disposition: HOME, SELF-CARE Condition: Stable Scripts Ondansetron (Zofran) 4 Mg Tablet 4 MG ORAL Q6H PRN for Nausea & Vomiting, #15 TAB 0 Refills Prov: Graham Masterson MD 04/01/18 Patient Instructions: Abdominal Pain, Adult Additional Instructions: Follow-up with your doctor in 7 days. Return if worse. Graham Masterson MD Apr 01, 2018 21:06
[2018-04-01 21:15] VITALS: BP 132/73
== END | disposition home or self-care (01) ==
LOC: EMR 21:52
DX: R10.9 Unspecified abdominal pain (principal)
CPT/HCPCS: 99282

== ENCOUNTER 2018-04-02 04:33 | Inpatient (IN) | payer MEDICAID ==
[~2018-04-02] VITALS: Ht 167.6 cm; Wt 63.5 kg
[2018-04-02] MEDS ORDERED: NKM (04:46)
--- NOTE | 2018-04-02 04:56 | Emergency Room Report ---
History of Present Illness General Chief Complaint: Abdominal Pain Source: Patient Present Illness HPI Is a 42-year-old female with history of anxiety and chronic abdominal pain. She presents with chief complaint abdominal pain with nausea and vomiting. She said she noticed some specks of blood. Pain is diffuse in nature. Also complaining of diarrhea. No fever chills but denies any new antibiotics or recent travel. Pain is 10 out of 10. [place] anxious. Allergies: Coded Allergies: No Known Allergies (Unverified , 01/01/13) Patient History Past Medical History: see triage record, old chart reviewed, psych hx Past Surgical History: other Pertinent Family History: none Social History: Denies: smoking Last Menstrual Period: feb 2017 Now: No Immunizations: other Reviewed Nursing Documentation: PMH: Agreed; PSxH: Agreed Nursing Documentation-PMH Hx Cardiac Problems: No - Hyperthyroidism Hx Hypertension: No Hx Pacemaker: No Hx Asthma: No Hx COPD: No Hx Diabetes: No Hx Cancer: No Hx Gastrointestinal Problems: Yes - Gastroenteritis,Pancreatitis Hx Dialysis: No Hx Neurological Problems: No Hx Cerebrovascular Accident: No Hx Seizures: No Review of Systems Eye: Denies: eye pain, blurred vision ENT: Denies: ear pain, nose congestion, throat swelling Respiratory: Denies: cough, shortness of breath Cardiovascular: Denies: chest pain, palpitations Gastrointestinal: Reports: abdominal pain, diarrhea, nausea, vomiting Musculoskeletal: Denies: back pain, joint pain Skin: Denies: rash Neurological: Denies: headache, numbness Endocrine: Denies: increased thirst, increased urine Hematologic/Lymphatic: Denies: easy bruising All Other Systems: negative except mentioned in HPI Physical Exam Vital Signs Date Time Temp Pulse Resp B/P (MAP) Pulse Ox O2 Delivery O2 Flow Rate FiO2 04/02/18 04:41 98.4 52 18 128/63 99 Room Air vitals normal Sp02 EP Interpretation: reviewed, normal General Appearance: well appearing, no apparent distress, alert Head: normocephalic, atraumatic Eyes: bilateral eye PERRL, bilateral eye EOMI ENT: hearing grossly normal, normal pharynx Neck: full range of motion, supple, no meningismus Respiratory: chest non-tender, lungs clear, normal breath sounds Cardiovascular #1: regular rate, rhythm, no murmur Gastrointestinal: normal bowel sounds, non tender, no mass, no organomegaly, no bruit, non-distended Musculoskeletal: back normal, gait/station normal, normal range of motion Neurologic: alert, oriented x3 Psychiatric: anxious Skin: warm/dry Medical Decision Making Diagnostic Impression: Primary Impression: Acute colitis Additional Impressions: Anxiety Intractable vomiting Qualified Codes: R11.2 - Nausea with vomiting, unspecified Abdominal pain Qualified Codes: R10.84 - Generalized abdominal pain ER Course She presents with abdominal pain and has leukocytosis. CT scan showed diffuse colitis. No evidence of acute abdomen or obstruction. Antibiotic started. Will admit versus transfer. Lab Results Impression labs with leukocytosis CT/MRI/US Diagnostic Results CT/MRI/US Diagnostic Results : Imaging Test Ordered: CT abdomen and pelvis Impression Read by radiologist. Diffuse colitis. Last Vital Signs Date Time Temp Pulse Resp B/P (MAP) Pulse Ox O2 Delivery O2 Flow Rate FiO2 04/02/18 04:41 98.4 52 18 128/63 99 Room Air Status: improved Disposition: ADMITTED INPATIENT Condition: Serious Referrals: [facility],REFERRING (PCP) Graham Masterson MD Apr 02, 2018 04:56
[2018-04-02] MEDS ORDERED: Pantoprazole Inj IVP ONE (05:00)
[2018-04-02 05:15] VITALS: BP 128/63
[2018-04-02 05:28] LABS: HEMOGLOBIN 12.7 G/DL (12.0-16.0); MEAN CORPUSCULAR VOLUME 86 FL (80-99); PLATELET COUNT 189 K/UL (150-450); RED BLOOD COUNT 4.43 M/UL (4.20-5.40); RED CELL DISTRIBUTION WIDTH 10.7 % (11.6-14.8); WHITE BLOOD COUNT 20.9 K/UL (4.8-10.8)
[2018-04-02 05:36] LABS: ANION GAP 13 mmol/L (5-15); BLOOD UREA NITROGEN 16 mg/dL (7-18); CALCIUM 9.5 MG/DL (8.5-10.1); CARBON DIOXIDE 25 MMOL/L (21-32); CHLORIDE 102 MMOL/L (98-107); CREATININE 1.2 MG/DL (0.55-1.30); POTASSIUM 3.2 MMOL/L (3.5-5.1); SODIUM 140 MMOL/L (136-145)
[2018-04-02 05:40] LABS: ALANINE AMINOTRANSFERASE 48 U/L (12-78); ALBUMIN 4.1 G/DL (3.4-5.0); ALBUMIN/GLOBULIN RATIO 1.1 (1.0-2.7); ALKALINE PHOSPHATASE 102 U/L (46-116); ASPARTATE AMINO TRANSFERASE 73 U/L (15-37); BILIRUBIN,TOTAL 0.9 MG/DL (0.2-1.0)
[2018-04-02 05:43] VITALS: BP 137/59
[2018-04-02] MEDS ORDERED: LORazepam Inj 2mg/ml 1ml IV ONE (05:45)
[2018-04-02] MEDS ORDERED: Ciprofloxacin 500mg tab ORAL ONE (06:15)
[2018-04-02 06:54] LABS: HEMATOCRIT 36.6 % (37.0-47.0); HEMOGLOBIN 12.2 G/DL (12.0-16.0); MEAN CORPUSCULAR VOLUME 86 FL (80-99); PLATELET COUNT 145 K/UL (150-450); RED BLOOD COUNT 4.27 M/UL (4.20-5.40)
[2018-04-02 08:18] VITALS: BP 130/60
[2018-04-02] MEDS ORDERED: Nitroglycerin Subl 0.4mg tab SL PRN (09:15)
[2018-04-02] MEDS ORDERED: Miralax 17gm pkt ORAL PRN (09:15)
[2018-04-02] MEDS ORDERED: Haloperidol 5mg/ml Inj IM ONE (09:15)
--- NOTE | 2018-04-02 09:15 | History and Physical Report ---
DATE OF ADMISSION: 04/02/2018 TIME: 8 a.m. CONSULTANTS: 1. Deborah Quinonez M.D. 2. Santos Brown M.D. 3. Slim Moncada M.D. CHIEF COMPLAINT: Abdominal pain, nausea, vomiting, diagnosed with colitis. BRIEF HISTORY: This is a 42-year-old female, who lives at home, presents for the increased abdominal pain with nausea, vomiting, and diarrhea, came to [place], diagnosed with colitis with white count 20 and being admitted to medical floor. Currently, calm in the ER gurney, oriented x3, slight distress secondary to pain and nausea. PAST MEDICAL HISTORY: Pancreatitis and anxiety. PAST SURGICAL HISTORY: None. ALLERGIES: Denies. MEDICATIONS: Include IV fluid, metronidazole, Cipro, lorazepam, Zofran, and pantoprazole. SOCIAL HISTORY: Positive smoke. Positive alcohol occasionally. No intravenous drug abuse. FAMILY HISTORY: Noncontributory. PHYSICAL EXAMINATION: GENERAL: Calm in bed, oriented x3, slight distress secondary to pain and nausea. VITAL SIGNS: Temperature is 98 degrees, pulse 60, respirations 20, and blood pressure 130/60. CARDIOVASCULAR: No murmur. LUNGS: Distant and clear. ABDOMEN: Bowel sounds positive. Soft, slightly tender. No guarding. No rigidity. No rebound. EXTREMITIES: No cyanosis, clubbing, or edema. NEUROLOGIC: The patient moves all extremities, slightly weak. LABORATORY AND DIAGNOSTIC DATA: Labs at this time show white count 20 and platelet 145, otherwise CBC is normal. BMP show potassium 3.2, glucose 149, AST 73, otherwise BMP is normal. Urinalysis is pending. Urine toxicology positive for marijuana. ASSESSMENT: 1. Abdominal pain, colitis, nausea, vomiting, diarrhea. 2. Leukocytosis. 3. Pancreatitis. 4. Anxiety. 5. Hypokalemia. PLAN: 1. Pain control. 2. NPO. 3. IV fluids. 4. Antibiotics per Infectious Disease. 5. Replace potassium. 6. CBC and BMP in morning. 7. Resume home medications. Jam Joseph D.O. DR: NATALIA/ELY JOB#: [id number] CC:
--- NOTE | 2018-04-02 09:29 | General Progress Note ---
Assessment/Plan Problem List: (1) Acute colitis ICD Codes: K52.9 - Noninfective gastroenteritis and colitis, unspecified SNOMED: 25849380, 381056281 (2) Anxiety ICD Codes: F41.9 - Anxiety disorder, unspecified SNOMED: 07936839 (3) Intractable vomiting ICD Codes: R11.10 - Vomiting, unspecified SNOMED: 994870424 (4) Panic attack ICD Codes: F41.0 - Panic disorder [episodic paroxysmal anxiety] without agoraphobia SNOMED: 536284214 Assessment/Plan stool studies ppi fu labs avoid cannabinoids needs psych eval EGD if needed Subjective ROS Limited/Unobtainable: Yes Allergies: Coded Allergies: No Known Allergies (Unverified , 01/01/13) Subjective very anxious Objective Last 24 Hour Vital Signs Date Time Temp Pulse Resp B/P (MAP) Pulse Ox O2 Delivery O2 Flow Rate FiO2 04/02/18 08:18 98.3 60 20 130/60 100 Room Air 04/02/18 05:43 98.4 45 17 137/59 100 Room Air 04/02/18 05:15 52 18 Room Air 04/02/18 05:15 98.4 45 18 128/63 99 Room Air 04/02/18 04:41 98.4 52 18 128/63 99 Room Air Intake and Output 04/01/18 04/02/18 19:00 07:00 Intake Total 1000 ml Balance 1000 ml Intake Oral 0 ml IV Total 1000 ml Laboratory Tests 04/02/18 05:00: White Blood Count 20.9#H, Red Blood Count 4.43, Hemoglobin 12.7, Hematocrit 38.0 , Mean Corpuscular Volume 86, Mean Corpuscular Hemoglobin 28.6, Mean Corpuscular Hemoglobin Concent 33.4, Red Cell Distribution Width 10.7L, Platelet Count 189, Mean Platelet Volume 8.7, Neutrophils (%) (Auto) , Lymphocytes (%) (Auto) , Monocytes (%) (Auto) , Eosinophils (%) (Auto) , Basophils (%) (Auto) , Differential Total Cells Counted 100, Neutrophils % ( Manual) 83H, Lymphocytes % (Manual) 10L, Monocytes % (Manual) 7, Eosinophils % ( Manual) 0, Basophils % (Manual) 0, Band Neutrophils 0, Platelet Estimate Adequate, Platelet Morphology Normal, Red Blood Cell Morphology Normal, Urine HCG, Qualitative Negative, Sodium Level 140, Potassium Level 3.2L, Chloride Level 102, Carbon Dioxide Level 25, Anion Gap 13, Blood Urea Nitrogen 16, Creatinine 1.2, Estimat Glomerular Filtration Rate 59.1, Glucose Level 149H, Calcium Level 9.5, Total Bilirubin 0.9, Aspartate Amino Transf (AST/SGOT) 73H, Alanine Aminotransferase (ALT/SGPT) 48, Alkaline Phosphatase 102, Total Protein 7.8, Albumin 4.1, Globulin 3.7, Albumin/Globulin Ratio 1.1, Lipase 96 04/02/18 06:02: Urine Opiates Screen Negative, Urine Barbiturates Screen Negative, Phencyclidine (PCP) Screen Negative, Urine Amphetamines Screen Negative, Urine Benzodiazepines Screen Negative, Urine Cocaine Screen Negative, Urine Marijuana (THC) Screen PositiveH 04/02/18 06:24: White Blood Count 20.0H, Red Blood Count 4.27, Hemoglobin 12.2, Hematocrit 36.6L , Mean Corpuscular Volume 86, Mean Corpuscular Hemoglobin 28.5, Mean Corpuscular Hemoglobin Concent 33.3, Red Cell Distribution Width 11.0L, Platelet Count 145L, Mean Platelet Volume 7.9, Neutrophils (%) (Auto) , Lymphocytes (%) (Auto) , Monocytes (%) (Auto) , Eosinophils (%) (Auto) , Basophils (%) (Auto) , Differential Total Cells Counted 100, Neutrophils % ( Manual) 83H, Lymphocytes % (Manual) 12L, Monocytes % (Manual) 5, Eosinophils % ( Manual) 0, Basophils % (Manual) 0, Band Neutrophils 0, Platelet Estimate Adequate, Platelet Morphology Normal, Red Blood Cell Morphology Normal, Urine Color [Pending], Urine Appearance [Pending], Urine pH [Pending], Urine Specific [place] [Pending], Urine Protein [Pending], Urine Glucose (UA) [Pending], Urine Ketones [Pending], Urine Blood [Pending], Urine Nitrite [Pending], Urine Bilirubin [Pending], Urine Urobilinogen [Pending], Urine Leukocyte Esterase [ Pending] Height (Feet): 5 Height (Inches): 6.00 Weight (Pounds): 140 General Appearance: alert EENT: normal ENT inspection Neck: supple Cardiovascular: tachycardia Respiratory/Chest: lungs clear Abdomen: normal bowel sounds, non tender, soft Extremities: non-tender Santos Brown MD Apr 02, 2018 09:29
[2018-04-02 11:30] VITALS: BP 124/7
--- NOTE | 2018-04-02 12:34 | Consultation ---
History of Present Illness General Date patient seen: Apr 02, 2018 Chief Complaint: Abdominal Pain Present Illness HPI 42 y/o F with hx of Anxiety, hyperthyroidisim, hx gastroenteritis and pancreatitis, chronic abd pain presents to ED on 04/02 with worsenign abd pain, nausea, vomiting and diarrhea. She noticed some specks of blood in the vomit. Pain is diffuse, 10/10 intensity. Upon admission noted to ahve WBC [address] Denies f/c, recent abx, recent travel Allergies: Coded Allergies: No Known Allergies (Unverified , 01/01/13) Medication History Scheduled No Known Medications* (NKM - No Known Medications*), 0 ., (Reported) Scheduled PRN Ondansetron (Zofran), 4 MG ORAL Q6H PRN for Nausea & Vomiting Discontinued Medications Alprazolam* (Xanax*), 0.5 MG ORAL DAILY PRN for For Anxiety Discontinued Reason: Therapy completed Cephalexin* (Keflex*), 500 MG ORAL TID Discontinued Reason: Therapy completed Ibuprofen* (Motrin*), 600 MG ORAL THREE TIMES A DAY Discontinued Reason: Therapy completed No Known Medications* (NKM - No Known Medications*), 0 ., (Reported) Discontinued Reason: Therapy completed Patient History Healthcare decision maker N Resuscitation status Full Code Advanced Directive on File No Patient History Narrative Pmhx: as above Shx: Positive smoke. Positive alcohol occasionally. No intravenous drug abuse. Fhx: non contributory Review of Systems All Other Systems: negative except mentioned in HPI Physical Exam Physical Exam Narrative GENERAL: Calm in bed, oriented x3, slight distress secondary to pain and nausea. CARDIOVASCULAR: No murmur. LUNGS: Distant and clear. ABDOMEN: Bowel sounds positive. Soft, slightly tender. No guarding. No rigidity. No rebound. EXTREMITIES: No cyanosis, clubbing, or edema. NEUROLOGIC: The patient moves all extremities, slightly weak. Last 24 Hour Vital Signs Date Time Temp Pulse Resp B/P (MAP) Pulse Ox O2 Delivery O2 Flow Rate FiO2 04/02/18 11:23 98.5 88 16 128/75 97 Room Air 04/02/18 08:18 98.3 60 20 130/60 100 Room Air 04/02/18 05:43 98.4 45 17 137/59 100 Room Air 04/02/18 05:15 52 18 Room Air 04/02/18 05:15 98.4 45 18 128/63 99 Room Air 04/02/18 04:41 98.4 52 18 128/63 99 Room Air Intake and Output 04/01/18 04/02/18 18:59 06:59 Intake Total 1000 ml Balance 1000 ml Intake Oral 0 ml IV Total 1000 ml Laboratory Tests Test 04/02/18 05:00 04/02/18 06:02 04/02/18 06:24 White Blood Count 20.9 K/UL (4.8-10.8) #H 20.0 K/UL (4.8-10.8) H Red Blood Count 4.43 M/UL (4.20-5.40) 4.27 M/UL (4.20-5.40) Hemoglobin 12.7 G/DL (12.0-16.0) 12.2 G/DL (12.0-16.0) Hematocrit 38.0 % (37.0-47.0) 36.6 % (37.0-47.0) L Mean Corpuscular Volume 86 FL (80-99) 86 FL (80-99) Mean Corpuscular Hemoglobin 28.6 PG (27.0-31.0) 28.5 PG (27.0-31.0) Mean Corpuscular Hemoglobin Concent 33.4 G/DL (32.0-36.0) 33.3 G/DL (32.0-36.0) Red Cell Distribution Width 10.7 % (11.6-14.8) L 11.0 % (11.6-14.8) L Platelet Count 189 K/UL (150-450) 145 K/UL (150-450) L Mean Platelet Volume 8.7 FL (6.5-10.1) 7.9 FL (6.5-10.1) Neutrophils (%) (Auto) % (45.0-75.0) % (45.0-75.0) Lymphocytes (%) (Auto) % (20.0-45.0) % (20.0-45.0) Monocytes (%) (Auto) % (1.0-10.0) % (1.0-10.0) Eosinophils (%) (Auto) % (0.0-3.0) % (0.0-3.0) Basophils (%) (Auto) % (0.0-2.0) % (0.0-2.0) Differential Total Cells Counted 100 100 Neutrophils % (Manual) 83 % (45-75) H 83 % (45-75) H Lymphocytes % (Manual) 10 % (20-45) L 12 % (20-45) L Monocytes % (Manual) 7 % (1-10) 5 % (1-10) Eosinophils % (Manual) 0 % (0-3) 0 % (0-3) Basophils % (Manual) 0 % (0-2) 0 % (0-2) Band Neutrophils 0 % (0-8) 0 % (0-8) Platelet Estimate Adequate Adequate Platelet Morphology Normal Normal Red Blood Cell Morphology Normal Normal Urine HCG, Qualitative Negative (NEGATIVE) Sodium Level 140 MMOL/L (136-145) Potassium Level 3.2 MMOL/L (3.5-5.1) L Chloride Level 102 MMOL/L (98-107) Carbon Dioxide Level 25 MMOL/L (21-32) Anion Gap 13 mmol/L (5-15) Blood Urea Nitrogen 16 mg/dL (7-18) Creatinine 1.2 MG/DL (0.55-1.30) Estimat Glomerular Filtration Rate 59.1 mL/min (>60) Glucose Level 149 MG/DL (74-106) H Calcium Level 9.5 MG/DL (8.5-10.1) Total Bilirubin 0.9 MG/DL (0.2-1.0) Aspartate Amino Transf (AST/SGOT) 73 U/L (15-37) H Alanine Aminotransferase (ALT/SGPT) 48 U/L (12-78) Alkaline Phosphatase 102 U/L (46-116) Total Protein 7.8 G/DL (6.4-8.2) Albumin 4.1 G/DL (3.4-5.0) Globulin 3.7 g/dL Albumin/Globulin Ratio 1.1 (1.0-2.7) Lipase 96 U/L (73-393) Urine Opiates Screen Negative (NEGATIVE) Urine Barbiturates Screen Negative (NEGATIVE) Phencyclidine (PCP) Screen Negative (NEGATIVE) Urine Amphetamines Screen Negative (NEGATIVE) Urine Benzodiazepines Screen Negative (NEGATIVE) Urine Cocaine Screen Negative (NEGATIVE) Urine Marijuana (THC) Screen Positive (NEGATIVE) H Urine Color Pending Urine Appearance Pending Urine pH Pending Urine Specific [place] Pending Urine Protein Pending Urine Glucose (UA) Pending Urine Ketones Pending Urine Blood Pending Urine Nitrite Pending Urine Bilirubin Pending Urine Urobilinogen Pending Urine Leukocyte Esterase Pending Height (Feet): 5 Height (Inches): 6.00 Weight (Pounds): 140 Medications Current Medications Medications (Trade) Dose Ordered Sig/Radha Route PRN Reason Start Time Stop Time Status Last Admin Dose Admin Acetaminophen (Tylenol) 650 mg Q4H PRN ORAL fever 04/02/18 09:15 05/02/18 09:14 Al Hydroxide/Mg Hydroxide (Mylanta II) 30 ml Q6H PRN ORAL dyspepsia 04/02/18 09:15 05/02/18 09:14 Dextrose (Dextrose 50%) 25 ml Q30M PRN IV Hypoglycemia 04/02/18 09:15 05/02/18 09:14 Dextrose (Dextrose 50%) 50 ml Q30M PRN IV Hypoglycemia 04/02/18 09:15 05/02/18 09:14 Dextrose/Sodium Chloride 1,000 ml @ 75 mls/hr [id number] IV 04/02/18 11:00 05/02/18 10:59 Diphenhydramine HCl (Benadryl) 25 mg Q6H PRN ORAL Itching/Pruritis 04/02/18 09:15 05/02/18 09:14 Heparin Sodium (Porcine) (Heparin 5000 units/ml) 5,000 units EVERY 12 HOURS SUBQ 04/02/18 21:00 05/02/18 20:59 Morphine Sulfate (Morphine Sulfate) 2 mg Q4H PRN IVP severe Pain (Pain Scale 7-10) 04/02/18 09:15 04/09/18 09:14 Nitroglycerin (Ntg) 0.4 mg Q5M PRN SL Prn Chest Pain 04/02/18 09:15 05/02/18 09:14 Ondansetron HCl (Zofran) 4 mg Q6H PRN IVP Nausea & Vomiting 04/02/18 09:15 05/02/18 09:14 Pantoprazole (Protonix) 40 mg EVERY 12 HOURS IV 04/02/18 21:00 05/02/18 20:59 Polyethylene Glycol (Miralax) 17 gm HSPRN PRN ORAL Constipation 04/02/18 09:15 05/02/18 09:14 Temazepam (Restoril) 15 mg HSPRN PRN ORAL Insomnia 04/02/18 09:15 04/09/18 09:14 Assessment/Plan Assessment/Plan Abx: Cipro x1 04/02 Flagyl x1 04/02 Assessment: Colitis -CT abd/p p -Cdiff, stool cx p Afebrile Leukocytosis Anxiety hyperthyroidisim hx pancreatitis chronic abd pain Plan: -Continue empiric Ceftriaxone and Flagyl for colitis -if Cdiff +, switch Flagyl to PO Vancomycin -f/u cx -Monitor CBC/CMP, temperatures -stool cx, Cdiff, HIV ab -GI F/u Thank you for this consultation. Will continue to follow along with you. Discussed with Phyllis Pryor M.D. Apr 02, 2018 12:34
[2018-04-02] MEDS: D5 1/2NS 1,000 ML IV SCH (12:44)
[2018-04-02] MEDS: metroNIDAZOLE 500mg tab ORAL SCH ×2 (14:01→21:05)
[2018-04-02] MEDS ORDERED: Haloperidol 5mg/ml Inj IM PRN (15:30)
[2018-04-02 16:00] VITALS: BP_SYST 124; BP_SYST 136; BP_DIAS 67; BP_DIAS 69
[2018-04-02] MEDS: cefTRIAXone 1 GM in D5W 55 ML IVPB SCH (17:28)
[2018-04-02] MEDS: Haloperidol 5mg/ml Inj IM PRN (17:49)
[2018-04-02 20:44] VITALS: BP 107/60
[2018-04-02] MEDS: Heparin 5000 units/ml inj SUBQ SCH (21:00)
[2018-04-02] MEDS: Pantoprazole Inj IV SCH (21:05)
[2018-04-03] MEDS: D5 1/2NS 1,000 ML IV SCH ×2 (00:29→16:11)
[2018-04-03 00:34] VITALS: BP 113/74
[2018-04-03] MEDS: Haloperidol 5mg/ml Inj IM PRN ×4 (01:37→11:30)
[2018-04-03 04:15] VITALS: BP 116/80
[2018-04-03] MEDS: metroNIDAZOLE 500mg tab ORAL SCH ×3 (05:41→22:16)
[2018-04-03] MEDS: Mylanta II UD 30ml ORAL PRN (05:41)
[2018-04-03 06:18] LABS: BASOPHILS % (AUTO) 0.7 % (0.0-2.0); HEMATOCRIT 33.7 % (37.0-47.0); HEMOGLOBIN 11.2 G/DL (12.0-16.0); LYMPHOCYTES % (AUTO) 11.5 % (20.0-45.0); MEAN CORPUSCULAR VOLUME 86 FL (80-99); MONOCYTES % (AUTO) 8.3 % (1.0-10.0); NEUTROPHILS % (AUTO) 79.5 % (45.0-75.0); PLATELET COUNT 132 K/UL (150-450); RED BLOOD COUNT 3.93 M/UL (4.20-5.40); RED CELL DISTRIBUTION WIDTH 10.9 % (11.6-14.8); WHITE BLOOD COUNT 15.2 K/UL (4.8-10.8)
[2018-04-03 06:36] LABS: AMYLASE 40 U/L (25-115)
[2018-04-03 06:44] LABS: ALANINE AMINOTRANSFERASE 96 U/L (12-78); ALBUMIN 3.4 G/DL (3.4-5.0); ALKALINE PHOSPHATASE 85 U/L (46-116); ANION GAP 11 mmol/L (5-15); ASPARTATE AMINO TRANSFERASE 166 U/L (15-37); BILIRUBIN,TOTAL 0.9 MG/DL (0.2-1.0); BLOOD UREA NITROGEN 14 mg/dL (7-18); CALCIUM 8.8 MG/DL (8.5-10.1); CARBON DIOXIDE 24 MMOL/L (21-32); CHLORIDE 106 MMOL/L (98-107); CREATININE 0.8 MG/DL (0.55-1.30); SODIUM 141 MMOL/L (136-145)
[2018-04-03 08:00] VITALS: BP 121/56
[2018-04-03] MEDS: Pantoprazole Inj IV SCH ×2 (08:58→20:27)
[2018-04-03] MEDS: Morphine Sulfate 2mg/ml Inj IVP PRN ×2 (08:59→15:07)
[2018-04-03] MEDS ORDERED: Pantoprazole Inj IVP SCH (09:00)
[2018-04-03] MEDS: Heparin 5000 units/ml inj SUBQ SCH ×2 (09:00→21:00)
--- NOTE | 2018-04-03 10:55 | GI Progress Note ---
Assessment/Plan Problems: (1) Acute colitis ICD Codes: K52.9 - Noninfective gastroenteritis and colitis, unspecified SNOMED: 48921762, 703259009 (2) Intractable vomiting ICD Codes: R11.10 - Vomiting, unspecified SNOMED: 779457385 (3) Panic attack ICD Codes: F41.0 - Panic disorder [episodic paroxysmal anxiety] without agoraphobia SNOMED: 076878832 (4) Abdominal pain of unknown etiology ICD Codes: R10.9 - Unspecified abdominal pain SNOMED: 386242516 (5) Anemia ICD Codes: D64.9 - Anemia SNOMED: 898738781 Status: unchanged Status Narrative Discussed with Dr. Brown. Assessment/Plan stool studies if has persistent diarrhea zofran prn, unable to give reglan vs low dose erythromycin because of drug interactions ppi avoid cannabinoids needs psych eval EGD if patient has persistent vomiting fu labs The patient was seen and examined at bedside and all new and available data was reviewed in the patients chart. I agree with the above findings, impression and plan. (Patient seen earlier today. Signature stamp does not reflect patient encounter time.). - Santos Brown MD Subjective Subjective had episode of emesis this morning states she also has diarrhea Objective Last 24 Hour Vital Signs Date Time Temp Pulse Resp B/P (MAP) Pulse Ox O2 Delivery O2 Flow Rate FiO2 04/03/18 09:00 Room Air 04/03/18 08:00 98.8 56 18 121/56 (77) 98 04/03/18 04:15 85 20 116/80 (92) 98 04/03/18 00:34 97.0 79 20 113/74 (87) 100 04/02/18 22:19 Room Air 04/02/18 20:44 97.1 78 20 107/60 (76) 92 04/02/18 16:00 97.6 49 20 136/69 (91) 97 04/02/18 12:22 Room Air 04/02/18 11:30 100.2 57 20 124/7 (46) 97 04/02/18 11:23 98.5 88 16 128/75 97 Room Air Intake and Output 04/02/18 04/03/18 18:59 06:59 Intake Total 2575 ml 1172.5 ml Balance 2575 ml 1172.5 ml Intake Oral 120 ml 610 ml IV Total 2455 ml 562.5 ml # Voids 3 2 Laboratory Tests Test 04/03/18 05:25 White Blood Count 15.2 K/UL (4.8-10.8) H Red Blood Count 3.93 M/UL (4.20-5.40) L Hemoglobin 11.2 G/DL (12.0-16.0) L Hematocrit 33.7 % (37.0-47.0) L Mean Corpuscular Volume 86 FL (80-99) Mean Corpuscular Hemoglobin 28.4 PG (27.0-31.0) Mean Corpuscular Hemoglobin Concent 33.1 G/DL (32.0-36.0) Red Cell Distribution Width 10.9 % (11.6-14.8) L Platelet Count 132 K/UL (150-450) L Mean Platelet Volume 8.4 FL (6.5-10.1) Neutrophils (%) (Auto) 79.5 % (45.0-75.0) H Lymphocytes (%) (Auto) 11.5 % (20.0-45.0) L Monocytes (%) (Auto) 8.3 % (1.0-10.0) Eosinophils (%) (Auto) 0.0 % (0.0-3.0) Basophils (%) (Auto) 0.7 % (0.0-2.0) Activated Partial Thromboplast Time 28 SEC (23-33) Sodium Level 141 MMOL/L (136-145) Potassium Level 3.0 MMOL/L (3.5-5.1) L Chloride Level 106 MMOL/L (98-107) Carbon Dioxide Level 24 MMOL/L (21-32) Anion Gap 11 mmol/L (5-15) Blood Urea Nitrogen 14 mg/dL (7-18) Creatinine 0.8 MG/DL (0.55-1.30) Estimat Glomerular Filtration Rate > 60 mL/min (>60) Glucose Level 111 MG/DL (74-106) H Calcium Level 8.8 MG/DL (8.5-10.1) Total Bilirubin 0.9 MG/DL (0.2-1.0) Aspartate Amino Transf (AST/SGOT) 166 U/L (15-37) H Alanine Aminotransferase (ALT/SGPT) 96 U/L (12-78) H Alkaline Phosphatase 85 U/L (46-116) Total Protein 6.7 G/DL (6.4-8.2) Albumin 3.4 G/DL (3.4-5.0) Globulin 3.3 g/dL Albumin/Globulin Ratio 1.0 (1.0-2.7) Amylase Level 40 U/L (25-115) Lipase 127 U/L (73-393) HIV (1&2) Antibody Rapid Negative (NEGATIVE) Microbiology Date/Time Source Procedure Growth Status 04/02/18 15:10 Nasopharynx Influenza Types A,B Antigen (POORNIMA) - Final Complete Height (Feet): 5 Height (Inches): 6.00 Weight (Pounds): 140 General Appearance: no apparent distress, alert Cardiovascular: normal rate Respiratory/Chest: normal breath sounds, no respiratory distress Abdominal Exam: normal bowel sounds, non tender, soft Extremities: non-tender Vianey Masterson NP Apr 03, 2018 10:55
--- NOTE | 2018-04-03 11:57 | Infectious Diseases Prog Note ---
Assessment/Plan Assessment/Plan Abx: Cipro x1 2/3 Flagyl x1 2/3 Assessment: Colitis -CT abd/p p -Cdiff, stool cx p Afebrile Leukocytosis Anxiety hyperthyroidisim hx pancreatitis chronic abd pain Plan: -Continue empiric Ceftriaxone #2 and Flagyl #2 for colitis -if Cdiff +, switch Flagyl to PO Vancomycin -f/u cx -Monitor CBC/CMP, temperatures -stool cx, Cdiff, HIV ab -GI F/u Thank you for this consultation. Will continue to follow along with you. Discussed with RN. Subjective Allergies: Coded Allergies: No Known Allergies (Unverified , 01/01/13) Subjective Afebrile Leukocytosis improving Abdominal pain continues Objective Vital Signs Last 24 Hour Vital Signs Date Time Temp Pulse Resp B/P (MAP) Pulse Ox O2 Delivery O2 Flow Rate FiO2 04/03/18 09:00 Room Air 04/03/18 08:00 98.8 56 18 121/56 (77) 98 04/03/18 04:15 85 20 116/80 (92) 98 04/03/18 00:34 97.0 79 20 113/74 (87) 100 04/02/18 22:19 Room Air 04/02/18 20:44 97.1 78 20 107/60 (76) 92 04/02/18 16:00 97.6 49 20 136/69 (91) 97 04/02/18 12:22 Room Air Height (Feet): 5 Height (Inches): 6.00 Weight (Pounds): 140 Objective GENERAL: NAD CARDIOVASCULAR: RRR, No murmur. LUNGS: Distant and clear. ABDOMEN: Soft, slightly tender. No guarding. No rigidity. No rebound. Microbiology Date/Time Source Procedure Growth Status 04/02/18 15:10 Nasopharynx Influenza Types A,B Antigen (POORNIMA) - Final Complete Laboratory Tests Test 04/03/18 05:25 White Blood Count 15.2 K/UL (4.8-10.8) H Red Blood Count 3.93 M/UL (4.20-5.40) L Hemoglobin 11.2 G/DL (12.0-16.0) L Hematocrit 33.7 % (37.0-47.0) L Mean Corpuscular Volume 86 FL (80-99) Mean Corpuscular Hemoglobin 28.4 PG (27.0-31.0) Mean Corpuscular Hemoglobin Concent 33.1 G/DL (32.0-36.0) Red Cell Distribution Width 10.9 % (11.6-14.8) L Platelet Count 132 K/UL (150-450) L Mean Platelet Volume 8.4 FL (6.5-10.1) Neutrophils (%) (Auto) 79.5 % (45.0-75.0) H Lymphocytes (%) (Auto) 11.5 % (20.0-45.0) L Monocytes (%) (Auto) 8.3 % (1.0-10.0) Eosinophils (%) (Auto) 0.0 % (0.0-3.0) Basophils (%) (Auto) 0.7 % (0.0-2.0) Activated Partial Thromboplast Time 28 SEC (23-33) Sodium Level 141 MMOL/L (136-145) Potassium Level 3.0 MMOL/L (3.5-5.1) L Chloride Level 106 MMOL/L (98-107) Carbon Dioxide Level 24 MMOL/L (21-32) Anion Gap 11 mmol/L (5-15) Blood Urea Nitrogen 14 mg/dL (7-18) Creatinine 0.8 MG/DL (0.55-1.30) Estimat Glomerular Filtration Rate > 60 mL/min (>60) Glucose Level 111 MG/DL (74-106) H Calcium Level 8.8 MG/DL (8.5-10.1) Total Bilirubin 0.9 MG/DL (0.2-1.0) Aspartate Amino Transf (AST/SGOT) 166 U/L (15-37) H Alanine Aminotransferase (ALT/SGPT) 96 U/L (12-78) H Alkaline Phosphatase 85 U/L (46-116) Total Protein 6.7 G/DL (6.4-8.2) Albumin 3.4 G/DL (3.4-5.0) Globulin 3.3 g/dL Albumin/Globulin Ratio 1.0 (1.0-2.7) Amylase Level 40 U/L (25-115) Lipase 127 U/L (73-393) HIV (1&2) Antibody Rapid Negative (NEGATIVE) Current Medications Medications (Trade) Dose Ordered Sig/Radha Route PRN Reason Start Time Stop Time Status Last Admin Dose Admin Acetaminophen (Tylenol) 650 mg Q4H PRN ORAL fever 04/02/18 09:15 05/02/18 09:14 Al Hydroxide/Mg Hydroxide (Mylanta II) 30 ml Q6H PRN ORAL dyspepsia 04/02/18 09:15 05/02/18 09:14 04/03/18 05:41 Ceftriaxone Sodium 1 gm/ Dextrose 55 ml @ 110 mls/hr Q24H IVPB 04/02/18 18:00 04/09/18 17:59 04/02/18 17:28 Dextrose (Dextrose 50%) 25 ml Q30M PRN IV Hypoglycemia 04/02/18 09:15 05/02/18 09:14 Dextrose (Dextrose 50%) 50 ml Q30M PRN IV Hypoglycemia 04/02/18 09:15 05/02/18 09:14 Dextrose/Sodium Chloride 1,000 ml @ 75 mls/hr [id number] IV 04/02/18 11:00 05/02/18 10:59 04/03/18 00:29 Diphenhydramine HCl (Benadryl) 25 mg Q6H PRN ORAL Itching/Pruritis 04/02/18 09:15 05/02/18 09:14 04/03/18 06:53 Haloperidol Lactate (Haldol) 2 mg Q2H PRN IM Restlessness 04/02/18 17:45 05/02/18 17:44 04/03/18 11:30 Heparin Sodium (Porcine) (Heparin 5000 units/ml) 5,000 units EVERY 12 HOURS SUBQ 04/02/18 21:00 05/02/18 20:59 Metronidazole (Flagyl) 500 mg Q8HR ORAL 04/02/18 14:00 04/09/18 13:59 04/03/18 05:41 Morphine Sulfate (Morphine Sulfate) 2 mg Q4H PRN IVP severe Pain (Pain Scale 7-10) 04/02/18 09:15 04/09/18 09:14 04/03/18 08:59 Nitroglycerin (Ntg) 0.4 mg Q5M PRN SL Prn Chest Pain 04/02/18 09:15 05/02/18 09:14 Ondansetron HCl (Zofran) 4 mg Q6H PRN IVP Nausea & Vomiting 04/02/18 09:15 05/02/18 09:14 04/03/18 08:58 Pantoprazole (Protonix) 40 mg EVERY 12 HOURS IV 04/02/18 21:00 05/02/18 20:59 04/03/18 08:58 Polyethylene Glycol (Miralax) 17 gm HSPRN PRN ORAL Constipation 04/02/18 09:15 05/02/18 09:14 Temazepam (Restoril) 15 mg HSPRN PRN ORAL Insomnia 04/02/18 09:15 04/09/18 09:14 04/02/18 21:05 Daniel Maria MD Apr 03, 2018 11:57
[2018-04-03 12:00] VITALS: BP 135/74
--- NOTE | 2018-04-03 13:23 | General Progress Note ---
Assessment/Plan Problem List: (1) Vomiting ICD Codes: R11.10 - Vomiting, unspecified SNOMED: 141822113 (2) Acute pancreatitis ICD Codes: K85.9 - Acute pancreatitis, unspecified SNOMED: 411595606 (3) Nausea ICD Codes: R11.0 - Nausea SNOMED: 820520512 (4) Vomiting (5) Intractable abdominal pain ICD Codes: R10.9 - Unspecified abdominal pain SNOMED: 81016772 Status: unchanged Assessment/Plan npo ivf pain control abx cbc bmp am Subjective Constitutional: Reports: weakness Allergies: Coded Allergies: No Known Allergies (Unverified , 01/01/13) All Systems: reviewed and negative except above Subjective sleepy calm Objective Last 24 Hour Vital Signs Date Time Temp Pulse Resp B/P (MAP) Pulse Ox O2 Delivery O2 Flow Rate FiO2 04/03/18 09:00 Room Air 04/03/18 08:00 98.8 56 18 121/56 (77) 98 04/03/18 04:15 85 20 116/80 (92) 98 04/03/18 00:34 97.0 79 20 113/74 (87) 100 04/02/18 22:19 Room Air 04/02/18 20:44 97.1 78 20 107/60 (76) 92 04/02/18 16:00 97.6 49 20 136/69 (91) 97 Intake and Output 04/02/18 04/03/18 18:59 06:59 Intake Total 2575 ml 1172.5 ml Balance 2575 ml 1172.5 ml Intake Oral 120 ml 610 ml IV Total 2455 ml 562.5 ml # Voids 3 2 Laboratory Tests 04/03/18 05:25: White Blood Count 15.2H, Red Blood Count 3.93L, Hemoglobin 11.2L, Hematocrit 33.7L, Mean Corpuscular Volume 86, Mean Corpuscular Hemoglobin 28.4, Mean Corpuscular Hemoglobin Concent 33.1, Red Cell Distribution Width 10.9L, Platelet Count 132L, Mean Platelet Volume 8.4, Neutrophils (%) (Auto) 79.5H, Lymphocytes (%) (Auto) 11.5L, Monocytes (%) (Auto) 8.3, Eosinophils (%) (Auto) 0.0, Basophils (%) (Auto) 0.7, Activated Partial Thromboplast Time 28, Sodium Level 141, Potassium Level 3.0L, Chloride Level 106, Carbon Dioxide Level 24, Anion Gap 11, Blood Urea Nitrogen 14, Creatinine 0.8, Estimat Glomerular Filtration Rate > 60, Glucose Level 111H, Calcium Level 8.8, Total Bilirubin 0.9 , Aspartate Amino Transf (AST/SGOT) 166H, Alanine Aminotransferase (ALT/SGPT) 96H, Alkaline Phosphatase 85, Total Protein 6.7, Albumin 3.4, Globulin 3.3, Albumin/Globulin Ratio 1.0, Amylase Level 40, Lipase 127, HIV (1&2) Antibody Rapid Negative Height (Feet): 5 Height (Inches): 6.00 Weight (Pounds): 140 General Appearance: lethargic EENT: normal ENT inspection Neck: normal alignment Cardiovascular: normal peripheral pulses, normal rate, regular rhythm Respiratory/Chest: chest wall non-tender, lungs clear, normal breath sounds Abdomen: normal bowel sounds, non tender, soft Extremities: normal inspection Edema: no edema noted Arm (L), no edema noted Arm (R), no edema noted Leg (L), no edema noted Leg (R), no edema noted Pedal (L), no edema noted Pedal (R), no edema noted Generalized Neurologic: motor weakness Skin: normal pigmentation, warm/dry Jam Joseph DO Apr 03, 2018 13:23
[2018-04-03 16:00] VITALS: BP 121/68
[2018-04-03] MEDS ORDERED: Tubing IV Secondary IV ONE (16:29)
[2018-04-03] MEDS ORDERED: D5 1/2NS 1000ml IV ONE (16:29)
[2018-04-03] MEDS: cefTRIAXone 1 GM in D5W 55 ML IVPB SCH (18:28)
[2018-04-03 20:00] VITALS: BP 120/74
[2018-04-04] VITALS: BP 118/84
[2018-04-04] MEDS: D5 1/2NS 1,000 ML IV SCH ×3 (03:29→16:58)
[2018-04-04 04:00] VITALS: BP 108/84
[2018-04-04] MEDS: metroNIDAZOLE 500mg tab ORAL SCH ×3 (05:44→21:58)
[2018-04-04 07:37] LABS: BASOPHILS % (AUTO) 0.7 % (0.0-2.0); EOSINOPHILS % (AUTO) 0.1 % (0.0-3.0); HEMATOCRIT 33.9 % (37.0-47.0); HEMOGLOBIN 11.3 G/DL (12.0-16.0); LYMPHOCYTES % (AUTO) 14.5 % (20.0-45.0); MEAN CORPUSCULAR VOLUME 86 FL (80-99); NEUTROPHILS % (AUTO) 74.9 % (45.0-75.0); PLATELET COUNT 138 K/UL (150-450); RED BLOOD COUNT 3.94 M/UL (4.20-5.40); RED CELL DISTRIBUTION WIDTH 10.4 % (11.6-14.8); WHITE BLOOD COUNT 12.3 K/UL (4.8-10.8)
[2018-04-04 07:55] LABS: ANION GAP 7 mmol/L (5-15); BLOOD UREA NITROGEN 4 mg/dL (7-18); CALCIUM 8.4 MG/DL (8.5-10.1); CARBON DIOXIDE 27 MMOL/L (21-32); CHLORIDE 104 MMOL/L (98-107); CREATININE 0.7 MG/DL (0.55-1.30); POTASSIUM 3.2 MMOL/L (3.5-5.1); SODIUM 138 MMOL/L (136-145)
[2018-04-04 08:00] VITALS: BP 126/77
[2018-04-04] MEDS: Heparin 5000 units/ml inj SUBQ SCH ×2 (09:00→20:19)
[2018-04-04] MEDS: Haloperidol 5mg/ml Inj IM PRN (09:14)
[2018-04-04] MEDS: Pantoprazole Inj IV SCH ×2 (09:14→20:17)
--- NOTE | 2018-04-04 09:52 | Infectious Diseases Prog Note ---
Assessment/Plan Assessment/Plan Abx: Cipro x1 2/3 Flagyl x1 2/3 Assessment: Colitis -CT abd/p p -Cdiff, stool cx p Afebrile Leukocytosis Anxiety hyperthyroidisim hx pancreatitis chronic abd pain Plan: -Continue empiric Ceftriaxone #3 and Flagyl #3 for colitis -When ready for D/C could switch to levofloxacin 500mg and flagyl 500mg TID to finish a 10 day course (End date 04/10/18) -f/u cx -Monitor CBC/CMP, temperatures -GI F/u Thank you for this consultation. Will continue to follow along with you. Discussed with RN. Subjective Allergies: Coded Allergies: No Known Allergies (Unverified , 01/01/13) Subjective Afebrile Leukocytosis resolving Objective Vital Signs Last 24 Hour Vital Signs Date Time Temp Pulse Resp B/P (MAP) Pulse Ox O2 Delivery O2 Flow Rate FiO2 04/04/18 09:24 Room Air 04/04/18 08:00 98.0 62 20 126/77 (93) 98 04/04/18 04:00 99.0 62 20 108/84 (92) 98 04/04/18 00:00 98.2 58 20 118/84 (95) 98 04/03/18 21:00 Room Air 04/03/18 20:00 98.5 60 20 120/74 (89) 97 04/03/18 16:00 99.7 55 20 121/68 (85) 97 04/03/18 12:00 99.2 53 18 135/74 (94) 100 Height (Feet): 5 Height (Inches): 6.00 Weight (Pounds): 140 Objective GENERAL: Comfortable CARDIOVASCULAR: RRR, No murmur. LUNGS: Distant and clear. ABDOMEN: Soft, NT. No guarding. No rigidity. No rebound. Microbiology Date/Time Source Procedure Growth Status 04/02/18 15:10 Nasopharynx Influenza Types A,B Antigen (POORNIMA) - Final Complete Laboratory Tests Test 04/04/18 06:42 White Blood Count 12.3 K/UL (4.8-10.8) H Red Blood Count 3.94 M/UL (4.20-5.40) L Hemoglobin 11.3 G/DL (12.0-16.0) L Hematocrit 33.9 % (37.0-47.0) L Mean Corpuscular Volume 86 FL (80-99) Mean Corpuscular Hemoglobin 28.7 PG (27.0-31.0) Mean Corpuscular Hemoglobin Concent 33.4 G/DL (32.0-36.0) Red Cell Distribution Width 10.4 % (11.6-14.8) L Platelet Count 138 K/UL (150-450) L Mean Platelet Volume 8.4 FL (6.5-10.1) Neutrophils (%) (Auto) 74.9 % (45.0-75.0) Lymphocytes (%) (Auto) 14.5 % (20.0-45.0) L Monocytes (%) (Auto) 10.0 % (1.0-10.0) Eosinophils (%) (Auto) 0.1 % (0.0-3.0) Basophils (%) (Auto) 0.7 % (0.0-2.0) Sodium Level 138 MMOL/L (136-145) Potassium Level 3.2 MMOL/L (3.5-5.1) L Chloride Level 104 MMOL/L (98-107) Carbon Dioxide Level 27 MMOL/L (21-32) Anion Gap 7 mmol/L (5-15) Blood Urea Nitrogen 4 mg/dL (7-18) L Creatinine 0.7 MG/DL (0.55-1.30) Estimat Glomerular Filtration Rate > 60 mL/min (>60) Glucose Level 116 MG/DL (74-106) H Calcium Level 8.4 MG/DL (8.5-10.1) L Current Medications Medications (Trade) Dose Ordered Sig/Radha Route PRN Reason Start Time Stop Time Status Last Admin Dose Admin Acetaminophen (Tylenol) 650 mg Q4H PRN ORAL fever 04/02/18 09:15 05/02/18 09:14 Al Hydroxide/Mg Hydroxide (Mylanta II) 30 ml Q6H PRN ORAL dyspepsia 04/02/18 09:15 05/02/18 09:14 04/03/18 05:41 Ceftriaxone Sodium 1 gm/ Dextrose 55 ml @ 110 mls/hr Q24H IVPB 04/02/18 18:00 04/09/18 17:59 04/03/18 18:28 Dextrose (Dextrose 50%) 25 ml Q30M PRN IV Hypoglycemia 04/02/18 09:15 05/02/18 09:14 Dextrose (Dextrose 50%) 50 ml Q30M PRN IV Hypoglycemia 04/02/18 09:15 05/02/18 09:14 Dextrose/Sodium Chloride 1,000 ml @ 75 mls/hr [id number] IV 04/02/18 11:00 05/02/18 10:59 04/04/18 03:29 Diphenhydramine HCl (Benadryl) 25 mg Q6H PRN ORAL Itching/Pruritis 04/02/18 09:15 05/02/18 09:14 04/04/18 03:37 Haloperidol Lactate (Haldol) 2 mg Q2H PRN IM Restlessness 04/02/18 17:45 05/02/18 17:44 04/04/18 09:14 Heparin Sodium (Porcine) (Heparin 5000 units/ml) 5,000 units EVERY 12 HOURS SUBQ 04/02/18 21:00 05/02/18 20:59 Metronidazole (Flagyl) 500 mg Q8HR ORAL 04/02/18 14:00 04/09/18 13:59 04/04/18 05:44 Morphine Sulfate (Morphine Sulfate) 2 mg Q4H PRN IVP severe Pain (Pain Scale 7-10) 04/02/18 09:15 04/09/18 09:14 04/03/18 15:07 Nitroglycerin (Ntg) 0.4 mg Q5M PRN SL Prn Chest Pain 04/02/18 09:15 05/02/18 09:14 Ondansetron HCl (Zofran) 4 mg Q6H PRN IVP Nausea & Vomiting 04/02/18 09:15 05/02/18 09:14 04/04/18 07:56 Pantoprazole (Protonix) 40 mg EVERY 12 HOURS IV 04/02/18 21:00 05/02/18 20:59 04/04/18 09:14 Polyethylene Glycol (Miralax) 17 gm HSPRN PRN ORAL Constipation 04/02/18 09:15 05/02/18 09:14 Temazepam (Restoril) 15 mg HSPRN PRN ORAL Insomnia 04/02/18 09:15 04/09/18 09:14 04/03/18 22:16 Daniel Maria MD Apr 04, 2018 09:52
[2018-04-04 12:00] VITALS: BP 110/80
[2018-04-04] MEDS ORDERED: FLAGYL500 MG ORAL (12:41)
[2018-04-04] MEDS ORDERED: LEVOFLOXACIN500 MG ORAL (12:41)
--- NOTE | 2018-04-04 12:44 | Pulmonology Progress Note ---
Assessment/Plan Problems: (1) Acute colitis (2) Intractable vomiting Assessment/Plan advance diet iv abx check cultures dc possibly by tomorrow. Subjective ROS Limited/Unobtainable: No Constitutional: Reports: no symptoms HEENT: Repors: no symptoms Respiratory: Reports: no symptoms Allergies: Coded Allergies: No Known Allergies (Unverified , 01/01/13) Objective Last 24 Hour Vital Signs Date Time Temp Pulse Resp B/P (MAP) Pulse Ox O2 Delivery O2 Flow Rate FiO2 04/04/18 09:24 Room Air 04/04/18 08:00 98.0 62 20 126/77 (93) 98 04/04/18 04:00 99.0 62 20 108/84 (92) 98 04/04/18 00:00 98.2 58 20 118/84 (95) 98 04/03/18 21:00 Room Air 04/03/18 20:00 98.5 60 20 120/74 (89) 97 04/03/18 16:00 99.7 55 20 121/68 (85) 97 Intake and Output 04/03/18 04/04/18 19:00 07:00 Intake Total 175 ml 1805 ml Balance 175 ml 1805 ml Intake Oral 120 ml 980 ml IV Total 55 ml 825 ml # Voids 1 5 General Appearance: WD/WN HEENT: normocephalic Respiratory/Chest: chest wall non-tender, normal breath sounds Breasts: no masses Cardiovascular: normal rate Abdomen: normal bowel sounds, no organomegaly Genitourinary: normal external genitalia Extremities: no clubbing Skin: no rash Microbiology Date/Time Source Procedure Growth Status 04/02/18 15:10 Nasopharynx Influenza Types A,B Antigen (POORNIMA) - Final Complete Laboratory Tests 04/04/18 06:42: White Blood Count 12.3H, Red Blood Count 3.94L, Hemoglobin 11.3L, Hematocrit 33.9L, Mean Corpuscular Volume 86, Mean Corpuscular Hemoglobin 28.7, Mean Corpuscular Hemoglobin Concent 33.4, Red Cell Distribution Width 10.4L, Platelet Count 138L, Mean Platelet Volume 8.4, Neutrophils (%) (Auto) 74.9, Lymphocytes (%) (Auto) 14.5L, Monocytes (%) (Auto) 10.0, Eosinophils (%) (Auto) 0.1, Basophils (%) (Auto) 0.7, Sodium Level 138, Potassium Level 3.2L, Chloride Level 104, Carbon Dioxide Level 27, Anion Gap 7, Blood Urea Nitrogen 4L, Creatinine 0.7, Estimat Glomerular Filtration Rate > 60, Glucose Level 116H, Calcium Level 8.4L Current Medications Medications (Trade) Dose Ordered Sig/Radha Route PRN Reason Start Time Stop Time Status Last Admin Dose Admin Acetaminophen (Tylenol) 650 mg Q4H PRN ORAL fever 04/02/18 09:15 05/02/18 09:14 Al Hydroxide/Mg Hydroxide (Mylanta II) 30 ml Q6H PRN ORAL dyspepsia 04/02/18 09:15 05/02/18 09:14 04/03/18 05:41 Ceftriaxone Sodium 1 gm/ Dextrose 55 ml @ 110 mls/hr Q24H IVPB 04/02/18 18:00 04/09/18 17:59 04/03/18 18:28 Dextrose (Dextrose 50%) 25 ml Q30M PRN IV Hypoglycemia 04/02/18 09:15 05/02/18 09:14 Dextrose (Dextrose 50%) 50 ml Q30M PRN IV Hypoglycemia 04/02/18 09:15 05/02/18 09:14 Dextrose/Sodium Chloride 1,000 ml @ 75 mls/hr [id number] IV 04/02/18 11:00 05/02/18 10:59 04/04/18 03:29 Diphenhydramine HCl (Benadryl) 25 mg Q6H PRN ORAL Itching/Pruritis 04/02/18 09:15 05/02/18 09:14 04/04/18 03:37 Haloperidol Lactate (Haldol) 2 mg Q2H PRN IM Restlessness 04/02/18 17:45 05/02/18 17:44 04/04/18 09:14 Heparin Sodium (Porcine) (Heparin 5000 units/ml) 5,000 units EVERY 12 HOURS SUBQ 04/02/18 21:00 05/02/18 20:59 Metronidazole (Flagyl) 500 mg Q8HR ORAL 04/02/18 14:00 04/09/18 13:59 04/04/18 05:44 Morphine Sulfate (Morphine Sulfate) 2 mg Q4H PRN IVP severe Pain (Pain Scale 7-10) 04/02/18 09:15 04/09/18 09:14 04/03/18 15:07 Nitroglycerin (Ntg) 0.4 mg Q5M PRN SL Prn Chest Pain 04/02/18 09:15 05/02/18 09:14 Ondansetron HCl (Zofran) 4 mg Q6H PRN IVP Nausea & Vomiting 04/02/18 09:15 05/02/18 09:14 04/04/18 07:56 Pantoprazole (Protonix) 40 mg EVERY 12 HOURS IV 04/02/18 21:00 05/02/18 20:59 04/04/18 09:14 Polyethylene Glycol (Miralax) 17 gm HSPRN PRN ORAL Constipation 04/02/18 09:15 05/02/18 09:14 Temazepam (Restoril) 15 mg HSPRN PRN ORAL Insomnia 04/02/18 09:15 04/09/18 09:14 04/03/18 22:16 Deborah Quinonez MD Apr 04, 2018 12:44
--- NOTE | 2018-04-04 13:35 | General Progress Note ---
Assessment/Plan Problem List: (1) Vomiting ICD Codes: R11.10 - Vomiting, unspecified SNOMED: 809859191 (2) Acute colitis ICD Codes: K52.9 - Noninfective gastroenteritis and colitis, unspecified SNOMED: 89595590, 222758203 (3) Intractable vomiting ICD Codes: R11.10 - Vomiting, unspecified SNOMED: 076444168 (4) Anxiety ICD Codes: F41.9 - Anxiety disorder, unspecified SNOMED: 55464106 Status: unchanged Assessment/Plan adv diet ivf pain control abx cbc bmp am Subjective Constitutional: Reports: weakness Gastrointestinal/Abdominal: Reports: nausea Allergies: Coded Allergies: No Known Allergies (Unverified , 01/01/13) All Systems: reviewed and negative except above Subjective sleepy calm kayleigh liquid diet Objective Last 24 Hour Vital Signs Date Time Temp Pulse Resp B/P (MAP) Pulse Ox O2 Delivery O2 Flow Rate FiO2 04/04/18 12:00 97.6 90 110/80 (90) 100 04/04/18 09:24 Room Air 04/04/18 08:00 98.0 62 20 126/77 (93) 98 04/04/18 04:00 99.0 62 20 108/84 (92) 98 04/04/18 00:00 98.2 58 20 118/84 (95) 98 04/03/18 21:00 Room Air 04/03/18 20:00 98.5 60 20 120/74 (89) 97 04/03/18 16:00 99.7 55 20 121/68 (85) 97 Intake and Output 04/03/18 04/04/18 19:00 07:00 Intake Total 175 ml 1805 ml Balance 175 ml 1805 ml Intake Oral 120 ml 980 ml IV Total 55 ml 825 ml # Voids 1 5 Laboratory Tests 04/04/18 06:42: White Blood Count 12.3H, Red Blood Count 3.94L, Hemoglobin 11.3L, Hematocrit 33.9L, Mean Corpuscular Volume 86, Mean Corpuscular Hemoglobin 28.7, Mean Corpuscular Hemoglobin Concent 33.4, Red Cell Distribution Width 10.4L, Platelet Count 138L, Mean Platelet Volume 8.4, Neutrophils (%) (Auto) 74.9, Lymphocytes (%) (Auto) 14.5L, Monocytes (%) (Auto) 10.0, Eosinophils (%) (Auto) 0.1, Basophils (%) (Auto) 0.7, Sodium Level 138, Potassium Level 3.2L, Chloride Level 104, Carbon Dioxide Level 27, Anion Gap 7, Blood Urea Nitrogen 4L, Creatinine 0.7, Estimat Glomerular Filtration Rate > 60, Glucose Level 116H, Calcium Level 8.4L Height (Feet): 5 Height (Inches): 6.00 Weight (Pounds): 140 General Appearance: lethargic EENT: normal ENT inspection Neck: normal alignment Cardiovascular: normal peripheral pulses, normal rate, regular rhythm Respiratory/Chest: chest wall non-tender, lungs clear, normal breath sounds Abdomen: normal bowel sounds, non tender, soft Extremities: normal inspection Edema: no edema noted Arm (L), no edema noted Arm (R), no edema noted Leg (L), no edema noted Leg (R), no edema noted Pedal (L), no edema noted Pedal (R), no edema noted Generalized Neurologic: responsive, motor weakness Skin: normal pigmentation, warm/dry Jam Joseph DO Apr 04, 2018 13:35
[2018-04-04] MEDS ORDERED: D5 1/2NS 1000ml IV ONE ×2 (14:24→14:30)
--- NOTE | 2018-04-04 15:16 | GI Progress Note ---
Assessment/Plan Problems: (1) Acute colitis ICD Codes: K52.9 - Noninfective gastroenteritis and colitis, unspecified SNOMED: 27790119, 941196354 (2) Intractable vomiting ICD Codes: R11.10 - Vomiting, unspecified SNOMED: 493858222 Status: unchanged Status Narrative Discussed with Dr. Brown. Assessment/Plan stool studies if has persistent diarrhea zofran prn, unable to give reglan vs low dose erythromycin because of drug interactions ppi avoid cannabinoids needs psych eval EGD if patient has persistent vomiting fu labs The patient was seen and examined at bedside and all new and available data was reviewed in the patients chart. I agree with the above findings, impression and plan. (Patient seen earlier today. Signature stamp does not reflect patient encounter time.). - Santos Brown MD Subjective Subjective emesis diarrhea Objective Last 24 Hour Vital Signs Date Time Temp Pulse Resp B/P (MAP) Pulse Ox O2 Delivery O2 Flow Rate FiO2 04/04/18 12:00 97.6 90 110/80 (90) 100 04/04/18 09:24 Room Air 04/04/18 08:00 98.0 62 20 126/77 (93) 98 04/04/18 04:00 99.0 62 20 108/84 (92) 98 04/04/18 00:00 98.2 58 20 118/84 (95) 98 04/03/18 21:00 Room Air 04/03/18 20:00 98.5 60 20 120/74 (89) 97 04/03/18 16:00 99.7 55 20 121/68 (85) 97 Intake and Output 04/03/18 04/04/18 19:00 07:00 Intake Total 175 ml 1805 ml Balance 175 ml 1805 ml Intake Oral 120 ml 980 ml IV Total 55 ml 825 ml # Voids 1 5 Laboratory Tests Test 04/04/18 06:42 White Blood Count 12.3 K/UL (4.8-10.8) H Red Blood Count 3.94 M/UL (4.20-5.40) L Hemoglobin 11.3 G/DL (12.0-16.0) L Hematocrit 33.9 % (37.0-47.0) L Mean Corpuscular Volume 86 FL (80-99) Mean Corpuscular Hemoglobin 28.7 PG (27.0-31.0) Mean Corpuscular Hemoglobin Concent 33.4 G/DL (32.0-36.0) Red Cell Distribution Width 10.4 % (11.6-14.8) L Platelet Count 138 K/UL (150-450) L Mean Platelet Volume 8.4 FL (6.5-10.1) Neutrophils (%) (Auto) 74.9 % (45.0-75.0) Lymphocytes (%) (Auto) 14.5 % (20.0-45.0) L Monocytes (%) (Auto) 10.0 % (1.0-10.0) Eosinophils (%) (Auto) 0.1 % (0.0-3.0) Basophils (%) (Auto) 0.7 % (0.0-2.0) Sodium Level 138 MMOL/L (136-145) Potassium Level 3.2 MMOL/L (3.5-5.1) L Chloride Level 104 MMOL/L (98-107) Carbon Dioxide Level 27 MMOL/L (21-32) Anion Gap 7 mmol/L (5-15) Blood Urea Nitrogen 4 mg/dL (7-18) L Creatinine 0.7 MG/DL (0.55-1.30) Estimat Glomerular Filtration Rate > 60 mL/min (>60) Glucose Level 116 MG/DL (74-106) H Calcium Level 8.4 MG/DL (8.5-10.1) L Height (Feet): 5 Height (Inches): 6.00 Weight (Pounds): 140 General Appearance: WD/WN, no apparent distress, alert Cardiovascular: normal rate Respiratory/Chest: normal breath sounds, no respiratory distress Abdominal Exam: normal bowel sounds, non tender, soft Extremities: normal range of motion, non-tender Vianey Masterson NP Apr 04, 2018 15:16
[2018-04-04 16:00] VITALS: BP 124/68
[2018-04-04] MEDS: Morphine Sulfate 2mg/ml Inj IVP PRN (16:53)
[2018-04-04] MEDS: cefTRIAXone 1 GM in D5W 55 ML IVPB SCH (17:24)
[2018-04-04 20:42] VITALS: BP 129/73
[2018-04-05] VITALS: BP 124/75
[2018-04-05 04:00] VITALS: BP 117/63
[2018-04-05] MEDS: Mylanta II UD 30ml ORAL PRN (05:10)
[2018-04-05] MEDS: D5 1/2NS 1,000 ML IV SCH ×2 (06:01→18:30)
[2018-04-05] MEDS: metroNIDAZOLE 500mg tab ORAL SCH ×3 (06:18→21:23)
[2018-04-05 07:12] LABS: BASOPHILS % (AUTO) 0.8 % (0.0-2.0); EOSINOPHILS % (AUTO) 0.4 % (0.0-3.0); HEMATOCRIT 34.4 % (37.0-47.0); HEMOGLOBIN 11.5 G/DL (12.0-16.0); LYMPHOCYTES % (AUTO) 21.9 % (20.0-45.0); MEAN CORPUSCULAR VOLUME 86 FL (80-99); MONOCYTES % (AUTO) 11.9 % (1.0-10.0); NEUTROPHILS % (AUTO) 65.1 % (45.0-75.0); PLATELET COUNT 157 K/UL (150-450); RED BLOOD COUNT 4.02 M/UL (4.20-5.40); RED CELL DISTRIBUTION WIDTH 10.8 % (11.6-14.8)
[2018-04-05 07:22] LABS: ANION GAP 8 mmol/L (5-15); BLOOD UREA NITROGEN 3 mg/dL (7-18); CALCIUM 8.9 MG/DL (8.5-10.1); CARBON DIOXIDE 28 MMOL/L (21-32); CHLORIDE 105 MMOL/L (98-107); CREATININE 0.9 MG/DL (0.55-1.30); POTASSIUM 3.4 MMOL/L (3.5-5.1); SODIUM 140 MMOL/L (136-145)
[2018-04-05 08:00] VITALS: BP 123/58
[2018-04-05] MEDS: Pantoprazole Inj IV SCH ×2 (08:53→20:43)
[2018-04-05] MEDS: Heparin 5000 units/ml inj SUBQ SCH ×2 (08:57→20:36)
[2018-04-05 12:00] VITALS: BP 127/71
--- NOTE | 2018-04-05 12:36 | Infectious Diseases Prog Note ---
Assessment/Plan Assessment/Plan Abx: Cipro x1 /3 Flagyl x1 3 Assessment: Colitis -CT abd/p p -Cdiff, stool cx p Afebrile Leukocytosis Anxiety hyperthyroidisim hx pancreatitis chronic abd pain Plan: -Continue empiric Ceftriaxone #4 and Flagyl #4 for colitis -When ready for D/C could switch to levofloxacin 500mg and flagyl 500mg TID to finish a 10 day course (End date 04/10/18) -Monitor CBC/CMP, temperatures -GI F/u Thank you for this consultation. Will continue to follow along with you. Discussed with RN. Subjective Allergies: Coded Allergies: No Known Allergies (Unverified , 01/01/13) Subjective Afebrile Leukocytosis resolved Objective Vital Signs Last 24 Hour Vital Signs Date Time Temp Pulse Resp B/P (MAP) Pulse Ox O2 Delivery O2 Flow Rate FiO2 04/05/18 12:00 98.1 62 20 127/71 (89) 98 04/05/18 09:00 Room Air 04/05/18 08:00 99.0 54 20 123/58 (79) 98 04/05/18 04:00 97.8 73 18 117/63 (81) 73 04/05/18 00:00 97.9 65 20 124/75 (91) 65 04/04/18 21:43 Room Air 04/04/18 20:42 98.0 92 18 129/73 (91) 92 04/04/18 17:25 98.1 04/04/18 16:00 98.1 76 20 124/68 (86) 99 Height (Feet): 5 Height (Inches): 6.00 Weight (Pounds): 140 Objective GENERAL: NAD CARDIOVASCULAR: RRR, No murmur. LUNGS: Distant and clear. ABDOMEN: Soft, NT. No guarding. No rigidity. No rebound. Microbiology Date/Time Source Procedure Growth Status 04/02/18 15:10 Nasopharynx Influenza Types A,B Antigen (POORNIMA) - Final Complete Laboratory Tests Test 04/05/18 06:37 04/05/18 09:30 White Blood Count 10.0 K/UL (4.8-10.8) Red Blood Count 4.02 M/UL (4.20-5.40) L Hemoglobin 11.5 G/DL (12.0-16.0) L Hematocrit 34.4 % (37.0-47.0) L Mean Corpuscular Volume 86 FL (80-99) Mean Corpuscular Hemoglobin 28.6 PG (27.0-31.0) Mean Corpuscular Hemoglobin Concent 33.3 G/DL (32.0-36.0) Red Cell Distribution Width 10.8 % (11.6-14.8) L Platelet Count 157 K/UL (150-450) Mean Platelet Volume 9.1 FL (6.5-10.1) Neutrophils (%) (Auto) 65.1 % (45.0-75.0) Lymphocytes (%) (Auto) 21.9 % (20.0-45.0) Monocytes (%) (Auto) 11.9 % (1.0-10.0) H Eosinophils (%) (Auto) 0.4 % (0.0-3.0) Basophils (%) (Auto) 0.8 % (0.0-2.0) Sodium Level 140 MMOL/L (136-145) Potassium Level 3.4 MMOL/L (3.5-5.1) L Chloride Level 105 MMOL/L (98-107) Carbon Dioxide Level 28 MMOL/L (21-32) Anion Gap 8 mmol/L (5-15) Blood Urea Nitrogen 3 mg/dL (7-18) L Creatinine 0.9 MG/DL (0.55-1.30) Estimat Glomerular Filtration Rate > 60 mL/min (>60) Glucose Level 104 MG/DL (74-106) Calcium Level 8.9 MG/DL (8.5-10.1) Stool Occult Blood Negative (NEGATIVE) Current Medications Medications (Trade) Dose Ordered Sig/Radha Route PRN Reason Start Time Stop Time Status Last Admin Dose Admin Acetaminophen (Tylenol) 650 mg Q4H PRN ORAL fever 04/02/18 09:15 05/02/18 09:14 04/05/18 04:06 Al Hydroxide/Mg Hydroxide (Mylanta II) 30 ml Q6H PRN ORAL dyspepsia 04/02/18 09:15 05/02/18 09:14 04/05/18 05:10 Ceftriaxone Sodium 1 gm/ Dextrose 55 ml @ 110 mls/hr Q24H IVPB 04/02/18 18:00 04/09/18 17:59 04/04/18 17:24 Dextrose (Dextrose 50%) 25 ml Q30M PRN IV Hypoglycemia 04/02/18 09:15 05/02/18 09:14 Dextrose (Dextrose 50%) 50 ml Q30M PRN IV Hypoglycemia 04/02/18 09:15 05/02/18 09:14 Dextrose/Sodium Chloride 1,000 ml @ 75 mls/hr [id number] IV 04/02/18 11:00 05/02/18 10:59 04/05/18 06:01 Diphenhydramine HCl (Benadryl) 25 mg Q6H PRN ORAL Itching/Pruritis 04/02/18 09:15 05/02/18 09:14 04/04/18 03:37 Haloperidol Lactate (Haldol) 2 mg Q2H PRN IM Restlessness 04/02/18 17:45 05/02/18 17:44 04/04/18 09:14 Heparin Sodium (Porcine) (Heparin 5000 units/ml) 5,000 units EVERY 12 HOURS SUBQ 04/02/18 21:00 05/02/18 20:59 04/05/18 08:57 Metoclopramide HCl (Reglan) 10 mg EVERY 8 HOURS ORAL 04/05/18 14:00 05/05/18 13:59 Metronidazole (Flagyl) 500 mg Q8HR ORAL 04/02/18 14:00 04/09/18 13:59 04/05/18 06:18 Mirtazapine (Remeron) 7.5 mg BEDTIME ORAL 04/04/18 21:00 05/04/18 20:59 04/04/18 20:18 Morphine Sulfate (Morphine Sulfate) 2 mg Q4H PRN IVP severe Pain (Pain Scale 7-10) 04/02/18 09:15 04/09/18 09:14 04/04/18 16:53 Nitroglycerin (Ntg) 0.4 mg Q5M PRN SL Prn Chest Pain 04/02/18 09:15 05/02/18 09:14 Ondansetron HCl (Zofran) 4 mg Q6H PRN IVP Nausea & Vomiting 04/02/18 09:15 05/02/18 09:14 04/05/18 08:12 Pantoprazole (Protonix) 40 mg EVERY 12 HOURS IV 04/02/18 21:00 05/02/18 20:59 04/05/18 08:53 Polyethylene Glycol (Miralax) 17 gm HSPRN PRN ORAL Constipation 04/02/18 09:15 05/02/18 09:14 Temazepam (Restoril) 30 mg HSPRN PRN ORAL Insomnia 04/04/18 14:15 04/09/18 09:14 Daniel Maria MD Apr 05, 2018 12:36
--- NOTE | 2018-04-05 13:47 | GI Progress Note ---
Assessment/Plan Problems: (1) Acute colitis ICD Codes: K52.9 - Noninfective gastroenteritis and colitis, unspecified SNOMED: 77997860, 518278725 (2) Intractable vomiting ICD Codes: R11.10 - Vomiting, unspecified SNOMED: 954803331 Status: stable, unchanged Status Narrative Discussed with Dr. Brown Assessment/Plan C. difficile collected, final read pending Abdominal pelvic CT taken, final read still pending Stool studies collected FLD, advance as tolerated zofran prn, unable to give reglan vs low dose erythromycin because of drug interactions ppi avoid cannabinoids needs psych eval EGD if patient has persistent vomiting tobacco cessation education given fu labs The patient was seen and examined at bedside and all new and available data was reviewed in the patients chart. I agree with the above findings, impression and plan. (Patient seen earlier today. Signature stamp does not reflect patient encounter time.). - Santos Brown MD Subjective Subjective Episode of hemoptysis today Had bowel movement in which she states she described as soft and formed, non- watery Denies any abdominal pain Objective Last 24 Hour Vital Signs Date Time Temp Pulse Resp B/P (MAP) Pulse Ox O2 Delivery O2 Flow Rate FiO2 04/05/18 12:00 98.1 62 20 127/71 (89) 98 04/05/18 09:00 Room Air 04/05/18 08:00 99.0 54 20 123/58 (79) 98 04/05/18 04:00 97.8 73 18 117/63 (81) 73 04/05/18 00:00 97.9 65 20 124/75 (91) 65 04/04/18 21:43 Room Air 04/04/18 20:42 98.0 92 18 129/73 (91) 92 04/04/18 17:25 98.1 04/04/18 16:00 98.1 76 20 124/68 (86) 99 Intake and Output 04/04/18 04/05/18 19:00 07:00 Intake Total 1718.5 ml Balance 1718.5 ml Intake Oral 876 ml IV Total 842.5 ml # Voids 4 Laboratory Tests Test 04/05/18 06:37 04/05/18 09:30 White Blood Count 10.0 K/UL (4.8-10.8) Red Blood Count 4.02 M/UL (4.20-5.40) L Hemoglobin 11.5 G/DL (12.0-16.0) L Hematocrit 34.4 % (37.0-47.0) L Mean Corpuscular Volume 86 FL (80-99) Mean Corpuscular Hemoglobin 28.6 PG (27.0-31.0) Mean Corpuscular Hemoglobin Concent 33.3 G/DL (32.0-36.0) Red Cell Distribution Width 10.8 % (11.6-14.8) L Platelet Count 157 K/UL (150-450) Mean Platelet Volume 9.1 FL (6.5-10.1) Neutrophils (%) (Auto) 65.1 % (45.0-75.0) Lymphocytes (%) (Auto) 21.9 % (20.0-45.0) Monocytes (%) (Auto) 11.9 % (1.0-10.0) H Eosinophils (%) (Auto) 0.4 % (0.0-3.0) Basophils (%) (Auto) 0.8 % (0.0-2.0) Sodium Level 140 MMOL/L (136-145) Potassium Level 3.4 MMOL/L (3.5-5.1) L Chloride Level 105 MMOL/L (98-107) Carbon Dioxide Level 28 MMOL/L (21-32) Anion Gap 8 mmol/L (5-15) Blood Urea Nitrogen 3 mg/dL (7-18) L Creatinine 0.9 MG/DL (0.55-1.30) Estimat Glomerular Filtration Rate > 60 mL/min (>60) Glucose Level 104 MG/DL (74-106) Calcium Level 8.9 MG/DL (8.5-10.1) Stool Occult Blood Negative (NEGATIVE) Height (Feet): 5 Height (Inches): 6.00 Weight (Pounds): 140 General Appearance: WD/WN, no apparent distress, alert Cardiovascular: normal rate Respiratory/Chest: normal breath sounds, no respiratory distress Abdominal Exam: normal bowel sounds, non tender, soft Extremities: normal range of motion, non-tender Vianey Masterson NP Apr 05, 2018 13:47
[2018-04-05] MEDS ORDERED: D5 1/2NS 1000ml IV ONE (15:23)
[2018-04-05 16:00] VITALS: BP 126/68
--- NOTE | 2018-04-05 16:33 | General Progress Note ---
Assessment/Plan Problem List: (1) Vomiting ICD Codes: R11.10 - Vomiting, unspecified SNOMED: 922304077 (2) Acute colitis ICD Codes: K52.9 - Noninfective gastroenteritis and colitis, unspecified SNOMED: 53789424, 267201336 (3) Intractable vomiting ICD Codes: R11.10 - Vomiting, unspecified SNOMED: 888329827 (4) Anxiety ICD Codes: F41.9 - Anxiety disorder, unspecified SNOMED: 37859531 Status: unchanged Assessment/Plan adv diet ivf pain control abx cbc bmp am dc plan Subjective Constitutional: Reports: weakness Gastrointestinal/Abdominal: Reports: nausea Allergies: Coded Allergies: No Known Allergies (Unverified , 01/01/13) All Systems: reviewed and negative except above Subjective sleepy calm kayleigh liquid diet Objective Last 24 Hour Vital Signs Date Time Temp Pulse Resp B/P (MAP) Pulse Ox O2 Delivery O2 Flow Rate FiO2 04/05/18 12:00 98.1 62 20 127/71 (89) 98 04/05/18 09:00 Room Air 04/05/18 08:00 99.0 54 20 123/58 (79) 98 04/05/18 04:00 97.8 73 18 117/63 (81) 73 04/05/18 00:00 97.9 65 20 124/75 (91) 65 04/04/18 21:43 Room Air 04/04/18 20:42 98.0 92 18 129/73 (91) 92 04/04/18 17:25 98.1 Intake and Output 04/04/18 04/05/18 19:00 07:00 Intake Total 1718.5 ml Balance 1718.5 ml Intake Oral 876 ml IV Total 842.5 ml # Voids 4 Laboratory Tests 04/05/18 06:37: White Blood Count 10.0, Red Blood Count 4.02L, Hemoglobin 11.5L, Hematocrit 34.4L, Mean Corpuscular Volume 86, Mean Corpuscular Hemoglobin 28.6, Mean Corpuscular Hemoglobin Concent 33.3, Red Cell Distribution Width 10.8L, Platelet Count 157, Mean Platelet Volume 9.1, Neutrophils (%) (Auto) 65.1, Lymphocytes (%) (Auto) 21.9, Monocytes (%) (Auto) 11.9H, Eosinophils (%) (Auto) 0.4, Basophils (%) (Auto) 0.8, Sodium Level 140, Potassium Level 3.4L, Chloride Level 105, Carbon Dioxide Level 28, Anion Gap 8, Blood Urea Nitrogen 3L, Creatinine 0.9, Estimat Glomerular Filtration Rate > 60, Glucose Level 104, Calcium Level 8.9 04/05/18 09:30: Stool Occult Blood Negative Height (Feet): 5 Height (Inches): 6.00 Weight (Pounds): 140 General Appearance: alert EENT: normal ENT inspection Neck: normal alignment Cardiovascular: normal peripheral pulses, normal rate, regular rhythm Respiratory/Chest: chest wall non-tender, lungs clear, normal breath sounds Abdomen: normal bowel sounds, non tender, soft Extremities: normal inspection Edema: no edema noted Arm (L), no edema noted Arm (R), no edema noted Leg (L), no edema noted Leg (R), no edema noted Pedal (L), no edema noted Pedal (R), no edema noted Generalized Neurologic: responsive, motor weakness Skin: normal pigmentation, warm/dry Jam Joseph DO Apr 05, 2018 16:33
[2018-04-05] MEDS: cefTRIAXone 1 GM in D5W 55 ML IVPB SCH (18:30)
[2018-04-05 20:00] VITALS: BP 124/69
[2018-04-06] VITALS: BP 128/70
[2018-04-06 04:00] VITALS: BP 120/78
[2018-04-06] MEDS: metroNIDAZOLE 500mg tab ORAL SCH ×4 (05:17→21:35)
[2018-04-06 07:52] LABS: BASOPHILS % (AUTO) 2.3 % (0.0-2.0); EOSINOPHILS % (AUTO) 1.3 % (0.0-3.0); HEMATOCRIT 35.2 % (37.0-47.0); HEMOGLOBIN 11.6 G/DL (12.0-16.0); LYMPHOCYTES % (AUTO) 23.9 % (20.0-45.0); MEAN CORPUSCULAR VOLUME 86 FL (80-99); NEUTROPHILS % (AUTO) 61.6 % (45.0-75.0); PLATELET COUNT 188 K/UL (150-450); RED BLOOD COUNT 4.08 M/UL (4.20-5.40); RED CELL DISTRIBUTION WIDTH 11.1 % (11.6-14.8); WHITE BLOOD COUNT 6.4 K/UL (4.8-10.8)
[2018-04-06 08:00] VITALS: BP 146/84
[2018-04-06 08:11] LABS: ANION GAP 8 mmol/L (5-15); BLOOD UREA NITROGEN 4 mg/dL (7-18); CALCIUM 8.7 MG/DL (8.5-10.1); CARBON DIOXIDE 30 MMOL/L (21-32); CHLORIDE 104 MMOL/L (98-107); CREATININE 0.8 MG/DL (0.55-1.30); POTASSIUM 2.9 MMOL/L (3.5-5.1); SODIUM 142 MMOL/L (136-145)
[2018-04-06] MEDS: Heparin 5000 units/ml inj SUBQ SCH ×2 (08:41→21:27)
[2018-04-06] MEDS: Pantoprazole Inj IV SCH ×2 (08:42→21:26)
--- NOTE | 2018-04-06 09:00 | Infectious Diseases Prog Note ---
Assessment/Plan Assessment/Plan Abx: Cipro x1 2/3 Flagyl x1 2/3 Assessment: Colitis -CT abd/p p -Cdiff, stool cx p Afebrile Leukocytosis Anxiety hyperthyroidisim hx pancreatitis chronic abd pain Plan: -Continue empiric Ceftriaxone #5 and Flagyl #5 for colitis -When ready for D/C could switch to levofloxacin 500mg and flagyl 500mg TID to finish a 10 day course (End date 04/10/18) -Monitor CBC/CMP, temperatures -GI F/u Thank you for this consultation. Will continue to follow along with you. Discussed with RN. Subjective Allergies: Coded Allergies: No Known Allergies (Unverified , 01/01/13) Subjective Afebrile Leukocytosis resolved Abdominal pain improved Objective Vital Signs Last 24 Hour Vital Signs Date Time Temp Pulse Resp B/P (MAP) Pulse Ox O2 Delivery O2 Flow Rate FiO2 04/06/18 08:00 98.1 18 146/84 (104) 100 04/06/18 04:00 98.2 77 20 120/78 (92) 100 04/06/18 00:00 98.4 72 20 128/70 (89) 100 04/05/18 21:00 Room Air 04/05/18 20:00 98.7 68 19 124/69 (87) 100 04/05/18 16:00 98.0 67 20 126/68 (87) 99 04/05/18 12:00 98.1 62 20 127/71 (89) 98 Height (Feet): 5 Height (Inches): 6.00 Weight (Pounds): 140 Objective GENERAL: NAD HEENT, NCAT, MMM ABDOMEN: Soft, NT. ND, + BS Microbiology Date/Time Source Procedure Growth Status 04/05/18 09:30 Stool Clostridium difficile Toxin Assay - Final Complete Laboratory Tests Test 04/05/18 09:30 04/06/18 07:00 Stool Occult Blood Negative (NEGATIVE) White Blood Count 6.4 K/UL (4.8-10.8) Red Blood Count 4.08 M/UL (4.20-5.40) L Hemoglobin 11.6 G/DL (12.0-16.0) L Hematocrit 35.2 % (37.0-47.0) L Mean Corpuscular Volume 86 FL (80-99) Mean Corpuscular Hemoglobin 28.6 PG (27.0-31.0) Mean Corpuscular Hemoglobin Concent 33.1 G/DL (32.0-36.0) Red Cell Distribution Width 11.1 % (11.6-14.8) L Platelet Count 188 K/UL (150-450) Mean Platelet Volume 8.1 FL (6.5-10.1) Neutrophils (%) (Auto) 61.6 % (45.0-75.0) Lymphocytes (%) (Auto) 23.9 % (20.0-45.0) Monocytes (%) (Auto) 11.0 % (1.0-10.0) H Eosinophils (%) (Auto) 1.3 % (0.0-3.0) Basophils (%) (Auto) 2.3 % (0.0-2.0) H Sodium Level 142 MMOL/L (136-145) Potassium Level 2.9 MMOL/L (3.5-5.1) L Chloride Level 104 MMOL/L (98-107) Carbon Dioxide Level 30 MMOL/L (21-32) Anion Gap 8 mmol/L (5-15) Blood Urea Nitrogen 4 mg/dL (7-18) L Creatinine 0.8 MG/DL (0.55-1.30) Estimat Glomerular Filtration Rate > 60 mL/min (>60) Glucose Level 106 MG/DL (74-106) Calcium Level 8.7 MG/DL (8.5-10.1) Current Medications Medications (Trade) Dose Ordered Sig/Radha Route PRN Reason Start Time Stop Time Status Last Admin Dose Admin Acetaminophen (Tylenol) 650 mg Q4H PRN ORAL fever 04/02/18 09:15 05/02/18 09:14 04/05/18 04:06 Al Hydroxide/Mg Hydroxide (Mylanta II) 30 ml Q6H PRN ORAL dyspepsia 04/02/18 09:15 05/02/18 09:14 04/05/18 05:10 Ceftriaxone Sodium 1 gm/ Dextrose 55 ml @ 110 mls/hr Q24H IVPB 04/02/18 18:00 04/09/18 17:59 04/05/18 18:30 Dextrose (Dextrose 50%) 25 ml Q30M PRN IV Hypoglycemia 04/02/18 09:15 05/02/18 09:14 Dextrose (Dextrose 50%) 50 ml Q30M PRN IV Hypoglycemia 04/02/18 09:15 05/02/18 09:14 Dextrose/Sodium Chloride 1,000 ml @ 75 mls/hr [id number] IV 04/02/18 11:00 05/02/18 10:59 04/05/18 18:30 Diphenhydramine HCl (Benadryl) 25 mg Q6H PRN ORAL Itching/Pruritis 04/02/18 09:15 05/02/18 09:14 04/04/18 03:37 Haloperidol Lactate (Haldol) 2 mg Q2H PRN IM Restlessness 04/02/18 17:45 05/02/18 17:44 04/04/18 09:14 Heparin Sodium (Porcine) (Heparin 5000 units/ml) 5,000 units EVERY 12 HOURS SUBQ 04/02/18 21:00 05/02/18 20:59 04/06/18 08:41 Metoclopramide HCl (Reglan) 10 mg EVERY 8 HOURS ORAL 04/05/18 14:00 05/05/18 13:59 04/06/18 05:17 Metronidazole (Flagyl) 500 mg Q8HR ORAL 04/02/18 14:00 04/09/18 13:59 04/06/18 05:17 Mirtazapine (Remeron) 7.5 mg BEDTIME ORAL 04/04/18 21:00 05/04/18 20:59 04/05/18 20:29 Morphine Sulfate (Morphine Sulfate) 2 mg Q4H PRN IVP severe Pain (Pain Scale 7-10) 04/02/18 09:15 04/09/18 09:14 04/04/18 16:53 Nitroglycerin (Ntg) 0.4 mg Q5M PRN SL Prn Chest Pain 04/02/18 09:15 05/02/18 09:14 Ondansetron HCl (Zofran) 4 mg Q6H PRN IVP Nausea & Vomiting 04/02/18 09:15 05/02/18 09:14 04/06/18 08:42 Pantoprazole (Protonix) 40 mg EVERY 12 HOURS IV 04/02/18 21:00 05/02/18 20:59 04/06/18 08:42 Polyethylene Glycol (Miralax) 17 gm HSPRN PRN ORAL Constipation 04/02/18 09:15 05/02/18 09:14 Temazepam (Restoril) 30 mg HSPRN PRN ORAL Insomnia 04/04/18 14:15 04/09/18 09:14 04/05/18 22:44 Daniel Maria MD Apr 06, 2018 09:00
[2018-04-06] MEDS: D5 1/2NS 1,000 ML IV SCH (09:03)
--- NOTE | 2018-04-06 10:54 | General Progress Note ---
Progress Note Progress Note [id number] full consult dictated Radha Hickman MD Apr 06, 2018 10:54
--- NOTE | 2018-04-06 11:40 | GI Progress Note ---
Assessment/Plan Problems: (1) Acute colitis ICD Codes: K52.9 - Noninfective gastroenteritis and colitis, unspecified SNOMED: 21305375, 384126641 (2) Intractable vomiting ICD Codes: R11.10 - Vomiting, unspecified SNOMED: 696489471 (3) Chronic nausea ICD Codes: R11.0 - Nausea SNOMED: 267230164 (4) Anemia ICD Codes: D64.9 - Anemia, unspecified SNOMED: 017148771 (5) Vomiting ICD Codes: R11.10 - Vomiting, unspecified SNOMED: 202037559 Status: not improved, unchanged Status Narrative Discussed with Dr. Brown Assessment/Plan C. difficile negative Abdominal pelvic CT taken, final read still pending EGD scheduled tomorrow to evaluate persistent nausea FLD, NPO @ ND. zofran prn, provides only temporary relief reglan ATC ppi avoid cannabinoids tobacco cessation education given fu labs The patient was seen and examined at bedside and all new and available data was reviewed in the patients chart. I agree with the above findings, impression and plan. (Patient seen earlier today. Signature stamp does not reflect patient encounter time.). - Santos Brown MD Subjective Subjective Episode of hemoptysis today Had bowel movement in which she states she described as soft and formed, non- watery Denies any abdominal pain Patient continues to complain of constant nausea, which causes her to unable to eat adequately States she was unable to eat anything presents with Denies any dysphasia Denies any decrease in appetite Objective Last 24 Hour Vital Signs Date Time Temp Pulse Resp B/P (MAP) Pulse Ox O2 Delivery O2 Flow Rate FiO2 04/06/18 09:00 Room Air 04/06/18 08:00 98.1 18 146/84 (104) 100 04/06/18 04:00 98.2 77 20 120/78 (92) 100 04/06/18 00:00 98.4 72 20 128/70 (89) 100 04/05/18 21:00 Room Air 04/05/18 20:00 98.7 68 19 124/69 (87) 100 04/05/18 16:00 98.0 67 20 126/68 (87) 99 04/05/18 12:00 98.1 62 20 127/71 (89) 98 Intake and Output 04/05/18 04/06/18 19:00 07:00 Intake Total 967 ml 1865 ml Balance 967 ml 1865 ml Intake Oral 912 ml 1040 ml IV Total 55 ml 825 ml # Voids 5 7 # Bowel Movements 1 Laboratory Tests Test 04/06/18 07:00 White Blood Count 6.4 K/UL (4.8-10.8) Red Blood Count 4.08 M/UL (4.20-5.40) L Hemoglobin 11.6 G/DL (12.0-16.0) L Hematocrit 35.2 % (37.0-47.0) L Mean Corpuscular Volume 86 FL (80-99) Mean Corpuscular Hemoglobin 28.6 PG (27.0-31.0) Mean Corpuscular Hemoglobin Concent 33.1 G/DL (32.0-36.0) Red Cell Distribution Width 11.1 % (11.6-14.8) L Platelet Count 188 K/UL (150-450) Mean Platelet Volume 8.1 FL (6.5-10.1) Neutrophils (%) (Auto) 61.6 % (45.0-75.0) Lymphocytes (%) (Auto) 23.9 % (20.0-45.0) Monocytes (%) (Auto) 11.0 % (1.0-10.0) H Eosinophils (%) (Auto) 1.3 % (0.0-3.0) Basophils (%) (Auto) 2.3 % (0.0-2.0) H Sodium Level 142 MMOL/L (136-145) Potassium Level 2.9 MMOL/L (3.5-5.1) L Chloride Level 104 MMOL/L (98-107) Carbon Dioxide Level 30 MMOL/L (21-32) Anion Gap 8 mmol/L (5-15) Blood Urea Nitrogen 4 mg/dL (7-18) L Creatinine 0.8 MG/DL (0.55-1.30) Estimat Glomerular Filtration Rate > 60 mL/min (>60) Glucose Level 106 MG/DL (74-106) Calcium Level 8.7 MG/DL (8.5-10.1) Height (Feet): 5 Height (Inches): 6.00 Weight (Pounds): 140 General Appearance: WD/WN, no apparent distress, alert Cardiovascular: normal rate Respiratory/Chest: normal breath sounds, no respiratory distress Abdominal Exam: normal bowel sounds, non tender, soft Extremities: normal range of motion, non-tender Vianey Masterson NP Apr 06, 2018 11:40
[2018-04-06 12:00] VITALS: BP 121/71
--- NOTE | 2018-04-06 12:43 | General Progress Note ---
Assessment/Plan Problem List: (1) Vomiting ICD Codes: R11.10 - Vomiting, unspecified SNOMED: 310958382 (2) Acute colitis ICD Codes: K52.9 - Noninfective gastroenteritis and colitis, unspecified SNOMED: 49933583, 871078708 (3) Intractable vomiting ICD Codes: R11.10 - Vomiting, unspecified SNOMED: 295457768 (4) Anxiety ICD Codes: F41.9 - Anxiety disorder, unspecified SNOMED: 97762463 Status: unchanged Assessment/Plan adv diet ivf pain control abx cbc bmp am dc plan Subjective Constitutional: Reports: weakness Gastrointestinal/Abdominal: Reports: nausea Allergies: Coded Allergies: No Known Allergies (Unverified , 01/01/13) All Systems: reviewed and negative except above Subjective sleepy calm kayleigh liquid diet Objective Last 24 Hour Vital Signs Date Time Temp Pulse Resp B/P (MAP) Pulse Ox O2 Delivery O2 Flow Rate FiO2 04/06/18 12:00 99.1 18 121/71 (88) 98 04/06/18 09:00 Room Air 04/06/18 08:00 98.1 18 146/84 (104) 100 04/06/18 04:00 98.2 77 20 120/78 (92) 100 04/06/18 00:00 98.4 72 20 128/70 (89) 100 04/05/18 21:00 Room Air 04/05/18 20:00 98.7 68 19 124/69 (87) 100 04/05/18 16:00 98.0 67 20 126/68 (87) 99 Intake and Output 04/05/18 04/06/18 19:00 07:00 Intake Total 967 ml 1865 ml Balance 967 ml 1865 ml Intake Oral 912 ml 1040 ml IV Total 55 ml 825 ml # Voids 5 7 # Bowel Movements 1 Laboratory Tests 04/06/18 07:00: White Blood Count 6.4, Red Blood Count 4.08L, Hemoglobin 11.6L, Hematocrit 35.2L , Mean Corpuscular Volume 86, Mean Corpuscular Hemoglobin 28.6, Mean Corpuscular Hemoglobin Concent 33.1, Red Cell Distribution Width 11.1L, Platelet Count 188, Mean Platelet Volume 8.1, Neutrophils (%) (Auto) 61.6, Lymphocytes (%) (Auto) 23.9, Monocytes (%) (Auto) 11.0H, Eosinophils (%) (Auto) 1.3, Basophils (%) (Auto) 2.3H, Sodium Level 142, Potassium Level 2.9L, Chloride Level 104, Carbon Dioxide Level 30, Anion Gap 8, Blood Urea Nitrogen 4L , Creatinine 0.8, Estimat Glomerular Filtration Rate > 60, Glucose Level 106, Calcium Level 8.7 Height (Feet): 5 Height (Inches): 6.00 Weight (Pounds): 140 General Appearance: lethargic EENT: normal ENT inspection Neck: normal alignment Cardiovascular: normal peripheral pulses, normal rate, regular rhythm Respiratory/Chest: chest wall non-tender, lungs clear, normal breath sounds Abdomen: normal bowel sounds, non tender, soft Extremities: normal inspection Edema: no edema noted Arm (L), no edema noted Arm (R), no edema noted Leg (L), no edema noted Leg (R), no edema noted Pedal (L), no edema noted Pedal (R), no edema noted Generalized Neurologic: responsive, motor weakness Skin: normal pigmentation, warm/dry Jam Joseph DO Apr 06, 2018 12:43
[2018-04-06] MEDS: D5 1/2NS w/KCl 40meq 1000ml 1,000 ML IV SCH (13:56)
[2018-04-06 16:00] VITALS: BP_SYST 121; BP_SYST 161; BP_DIAS 71; BP_DIAS 85
[2018-04-06] MEDS: Morphine Sulfate 2mg/ml Inj IVP PRN (16:20)
[2018-04-06] MEDS: cefTRIAXone 1 GM in D5W 55 ML IVPB SCH (18:11)
[2018-04-06 20:00] VITALS: BP 123/74
--- NOTE | 2018-04-06 22:45 | Consultation ---
DATE OF CONSULTATION: 04/06/2018 NEPHROLOGY CONSULTATION CONSULTING PHYSICIAN: Radha Hickman M.D. ATTENDING PHYSICIAN: Jma Joseph D.O. REASON FOR CONSULTATION: Persistent hypokalemia. HISTORY OF PRESENT ILLNESS: The patient is a 42-year-old -[place] female with past medical history significant for history of anxiety, hypothyroidism, and history of pancreatitis who presented to [facility] for intractable nausea and vomiting, and also had hematemesis. The patient also had some diarrhea, which she described her pain as 10/10. She was admitted and was found to have WBC count of 20,000. CT of the abdomen revealed colitis. The patient was started on IV fluids. Over this course of hospital admission, the patient continued to have diarrhea and continued to have hypokalemia despite of replacement. I was called for management of and electrolyte imbalance. MEDICATIONS: Home medications are includin. . 2. Xanax 0.5 mg daily. 3. Ibuprofen p.r.n. ALLERGIES: No known drug allergies. PAST MEDICAL HISTORY: Including history of hypothyroidism, history of anxiety, and history of anemia. SOCIAL HISTORY: She has a positive history of smoking and positive history of alcohol occasionally. No IV drugs. REVIEW OF SYSTEMS: GENERAL: She states that she lost more than 10 pound. No fever or chills. PULMONARY: No shortness of breath, cough, or sputum. CARDIOVASCULAR: Denies any chest pain or palpitations. GASTROINTESTINAL: Complaining of nausea; vomiting; diffuse abdominal pain, mostly in suprapubic area; and had diarrhea which has resolved since yesterday. GENITOURINARY: Denies any dysuria, frequency, or hematuria. MUSCULOSKELETAL: Denies any weakness or numbness. PHYSICAL EXAMINATION: VITAL SIGNS: The patient has a temperature of 98 degrees and blood pressure is 126/69. HEAD AND NECK: No JVP. No LAD. Dry mucous membranes. Extraocular movements intact. Pupils are reactive to light and accommodation. LUNGS: Decreased breathing sound on the both sides. CARDIAC: Regular rate and rhythm. S1 and S2. No murmur. No rub. ABDOMEN: Soft. She has very mild tenderness in suprapubic area and left lower quadrant, but no guarding and no rebound. Bowel sounds positive. No organomegaly. EXTREMITIES: No edema. No clubbing. No cyanosis. NEUROLOGIC: Cranial nerves II to XII within normal limits. Upper and lower extremities are grossly intact. LABORATORY AND DIAGNOSTIC DATA: Lab values; the patient had WBC count of , hemoglobin of 11.6, hematocrit of 35, and platelet count of 188,000. Chemistry revealed sodium 142, potassium 2.9, chloride 104, bicarb 30, BUN of 4, creatinine of 0.8, glucose of 106, and calcium of 8.7. UA, there is no UA and negative. ASSESSMENT: 1. Persistent hypokalemia, most likely GI, the patient had intractable nausea, vomiting, and diarrhea. . 2. Hypocalcemia. 3. History of colitis. 4. Hypertension. PLAN: Plan for the patient to obtain a urine potassium and urine osmolarity to check EKG. I would replace potassium. I will add KCl to IV fluids. I would check the magnesium level. At the end, I would like to thank, Dr. Jam Joseph for allowing me to participate in the care of this patient. Radha Hickman M.D. DR: LYLE JOB#: [id number] CC:
[2018-04-07 00:56] VITALS: BP 119/72
[2018-04-07 04:00] VITALS: BP 104/63
[2018-04-07] MEDS: D5 1/2NS w/KCl 40meq 1000ml 1,000 ML IV SCH (04:16)
[2018-04-07] MEDS ORDERED: DiphenhydrAMINE 50mg/ml Inj IVP PRN (07:00)
[2018-04-07] MEDS ORDERED: fentaNYL 100 mcg/2 mL IV PRN (07:00)
[2018-04-07] MEDS ORDERED: Midazolam 2mg/2ml Inj IVP PRN (07:00)
[2018-04-07] MEDS ORDERED: Atropine Inj 1mg/10ml Syr IV PRN (07:00)
--- NOTE | 2018-04-07 07:11 | Anethesia Preoperative Eval ---
Anesthesia Pre-op PMH/ROS General Date of Evaluation: Apr 07, 2018 Time of Evaluation: 07:03 Anesthesiologist: reuben ASA Score: ASA 2 Mallampati Score Class I : Soft palate, uvula, fauces, pillars visible Class II: Soft palate, uvula, fauces visible Class III: Soft palate, base of uvula visible Class IV: Only hard plate visible Surgeon: nona Diagnosis: anemia Surgical Procedure: egd Anesthesia History: none Social History: current smoker, drug use Family History: no anesthesia problems Allergies: Coded Allergies: No Known Allergies (Unverified , 01/01/13) Medications: see eMAR Patient NPO?: Yes Past Medical History Gastrointestinal/Genitourinary: Reports: other - weight loss, uti, pancreatitis , intractable vomiting, colitis Neurologic/Psychiatric: Reports: other - head injury Endocrine: Reports: other - hyperthyroidism Hematology/Immune: Reports: anemia Anesthesia Pre-op Phys. Exam Physician Exam Last Vital Signs Date Time Temp Pulse Resp B/P (MAP) Pulse Ox O2 Delivery O2 Flow Rate FiO2 04/07/18 04:00 99.0 85 20 104/63 (77) 98 04/06/18 21:00 Room Air Anesthesia Pre-op A/P Labs Urine Test negative 04/02/2018 Risk Assessment & Plan Assessment: asa2. hypokalemic since admission on 04/02/2018. today's lab in pending. yesterday 's serum level is 2.9 Plan: hypokalemia must be corrected prior to procedure. mac Status Change Before Surgery: No Pre-Antibiotics Drug: Kitty Cam MD Apr 07, 2018 07:11
[2018-04-07 07:51] LABS: INR 1.1 (0.9-1.1)
[2018-04-07 07:54] LABS: BASOPHILS % (AUTO) 1.2 % (0.0-2.0); EOSINOPHILS % (AUTO) 4.5 % (0.0-3.0); HEMATOCRIT 34.4 % (37.0-47.0); HEMOGLOBIN 11.4 G/DL (12.0-16.0); MEAN CORPUSCULAR VOLUME 86 FL (80-99); MONOCYTES % (AUTO) 6.5 % (1.0-10.0); NEUTROPHILS % (AUTO) 59.8 % (45.0-75.0); PLATELET COUNT 186 K/UL (150-450); RED CELL DISTRIBUTION WIDTH 11.2 % (11.6-14.8); WHITE BLOOD COUNT 5.7 K/UL (4.8-10.8)
[2018-04-07 08:00] VITALS: BP 121/75
[2018-04-07 08:27] LABS: ANION GAP 6 mmol/L (5-15); BLOOD UREA NITROGEN 3 mg/dL (7-18); CALCIUM 8.4 MG/DL (8.5-10.1); CARBON DIOXIDE 29 MMOL/L (21-32); CHLORIDE 106 MMOL/L (98-107); CREATININE 0.8 MG/DL (0.55-1.30); POTASSIUM 3.3 MMOL/L (3.5-5.1); SODIUM 141 MMOL/L (136-145)
--- NOTE | 2018-04-07 09:26 | General Progress Note ---
Assessment/Plan Problem List: (1) Vomiting ICD Codes: R11.10 - Vomiting, unspecified SNOMED: 024381409 (2) Acute colitis ICD Codes: K52.9 - Noninfective gastroenteritis and colitis, unspecified SNOMED: 84632256, 146810803 (3) Intractable vomiting ICD Codes: R11.10 - Vomiting, unspecified SNOMED: 679677637 (4) Anxiety ICD Codes: F41.9 - Anxiety disorder, unspecified SNOMED: 48851994 Status: stable, progressing Assessment/Plan adv diet ivf pain control abx dc if clear Subjective Constitutional: Reports: weakness Allergies: Coded Allergies: No Known Allergies (Unverified , 01/01/13) All Systems: reviewed and negative except above Subjective ate reg diet, wants to go home Objective Last 24 Hour Vital Signs Date Time Temp Pulse Resp B/P (MAP) Pulse Ox O2 Delivery O2 Flow Rate FiO2 04/07/18 04:00 99.0 85 20 104/63 (77) 98 04/07/18 00:56 98.9 67 20 119/72 (88) 99 04/06/18 21:00 Room Air 04/06/18 20:00 98.6 75 20 123/74 (90) 99 04/06/18 16:00 100.0 18 161/85 (110) 97 04/06/18 12:00 99.1 18 121/71 (88) 98 Intake and Output 04/06/18 04/07/18 19:00 07:00 Intake Total 255 ml 1105 ml Output Total 5 ml Balance 250 ml 1105 ml Intake Oral 180 ml 350 ml IV Total 75 ml 755 ml Output Emesis 5 ml # Voids 2 4 # Bowel Movements 3 Laboratory Tests 04/07/18 05:30: White Blood Count 5.7, Red Blood Count 4.00L, Hemoglobin 11.4L, Hematocrit 34.4L , Mean Corpuscular Volume 86, Mean Corpuscular Hemoglobin 28.5, Mean Corpuscular Hemoglobin Concent 33.2, Red Cell Distribution Width 11.2L, Platelet Count 186, Mean Platelet Volume 8.3, Neutrophils (%) (Auto) 59.8, Lymphocytes (%) (Auto) 28.0, Monocytes (%) (Auto) 6.5, Eosinophils (%) (Auto) 4.5H, Basophils (%) (Auto) 1.2, Prothrombin Time 11.4, Prothromb Time International Ratio 1.1, Activated Partial Thromboplast Time 29, Sodium Level 141, Potassium Level 3.3L, Chloride Level 106, Carbon Dioxide Level 29, Anion Gap 6, Blood Urea Nitrogen 3L, Creatinine 0.8, Estimat Glomerular Filtration Rate > 60, Glucose Level 85, Calcium Level 8.4L Height (Feet): 5 Height (Inches): 6.00 Weight (Pounds): 140 General Appearance: alert EENT: normal ENT inspection Neck: normal alignment Cardiovascular: normal peripheral pulses, normal rate, regular rhythm Respiratory/Chest: chest wall non-tender, lungs clear, normal breath sounds Abdomen: normal bowel sounds, non tender, soft Extremities: normal inspection Edema: no edema noted Arm (L), no edema noted Arm (R), no edema noted Leg (L), no edema noted Leg (R), no edema noted Pedal (L), no edema noted Pedal (R), no edema noted Generalized Neurologic: responsive, motor weakness Skin: normal pigmentation, warm/dry Jam Joseph DO Apr 07, 2018 09:26
[2018-04-07] MEDS: Pantoprazole Inj IV SCH (09:58)
[2018-04-07] MEDS: Heparin 5000 units/ml inj SUBQ SCH (09:58)
--- NOTE | 2018-04-07 10:08 | Infectious Diseases Prog Note ---
Assessment/Plan Assessment/Plan Abx: Cipro x1 2/3 Flagyl x1 2/3 Assessment: Colitis -CT abd/p p -Cdiff, stool cx p Afebrile Leukocytosis Anxiety hyperthyroidisim hx pancreatitis chronic abd pain Plan: -Continue empiric Ceftriaxone #6 and Flagyl #7 for colitis -When ready for D/C could switch to levofloxacin 500mg and flagyl 500mg TID to finish a 10 day course (End date 04/10/18) -Monitor CBC/CMP, temperatures -GI F/u - Consider non-infectious etiologies Thank you for this consultation. Will continue to follow along with you. Discussed with RN. Subjective Allergies: Coded Allergies: No Known Allergies (Unverified , 01/01/13) Subjective Still with nausea Afebrile Leukocytosis resolved Objective Vital Signs Last 24 Hour Vital Signs Date Time Temp Pulse Resp B/P (MAP) Pulse Ox O2 Delivery O2 Flow Rate FiO2 04/07/18 04:00 99.0 85 20 104/63 (77) 98 04/07/18 00:56 98.9 67 20 119/72 (88) 99 04/06/18 21:00 Room Air 04/06/18 20:00 98.6 75 20 123/74 (90) 99 04/06/18 16:00 100.0 18 161/85 (110) 97 04/06/18 12:00 99.1 18 121/71 (88) 98 Height (Feet): 5 Height (Inches): 6.00 Weight (Pounds): 140 Objective GENERAL: NAD HEENT, NCAT, MMM LUNGS: CTAB HEART: RRR ABDOMEN: Soft, NT. ND, + BS Microbiology Date/Time Source Procedure Growth Status 04/05/18 09:30 Stool Clostridium difficile Toxin Assay - Final Complete 04/05/18 09:30 Rectum Stool Culture - Preliminary Resulted Laboratory Tests Test 04/07/18 05:30 White Blood Count 5.7 K/UL (4.8-10.8) Red Blood Count 4.00 M/UL (4.20-5.40) L Hemoglobin 11.4 G/DL (12.0-16.0) L Hematocrit 34.4 % (37.0-47.0) L Mean Corpuscular Volume 86 FL (80-99) Mean Corpuscular Hemoglobin 28.5 PG (27.0-31.0) Mean Corpuscular Hemoglobin Concent 33.2 G/DL (32.0-36.0) Red Cell Distribution Width 11.2 % (11.6-14.8) L Platelet Count 186 K/UL (150-450) Mean Platelet Volume 8.3 FL (6.5-10.1) Neutrophils (%) (Auto) 59.8 % (45.0-75.0) Lymphocytes (%) (Auto) 28.0 % (20.0-45.0) Monocytes (%) (Auto) 6.5 % (1.0-10.0) Eosinophils (%) (Auto) 4.5 % (0.0-3.0) H Basophils (%) (Auto) 1.2 % (0.0-2.0) Prothrombin Time 11.4 SEC (9.30-11.50) Prothromb Time International Ratio 1.1 (0.9-1.1) Activated Partial Thromboplast Time 29 SEC (23-33) Sodium Level 141 MMOL/L (136-145) Potassium Level 3.3 MMOL/L (3.5-5.1) L Chloride Level 106 MMOL/L (98-107) Carbon Dioxide Level 29 MMOL/L (21-32) Anion Gap 6 mmol/L (5-15) Blood Urea Nitrogen 3 mg/dL (7-18) L Creatinine 0.8 MG/DL (0.55-1.30) Estimat Glomerular Filtration Rate > 60 mL/min (>60) Glucose Level 85 MG/DL (74-106) Calcium Level 8.4 MG/DL (8.5-10.1) L Current Medications Medications (Trade) Dose Ordered Sig/Radha Route PRN Reason Start Time Stop Time Status Last Admin Dose Admin Acetaminophen (Tylenol) 650 mg Q4H PRN ORAL fever 04/02/18 09:15 05/02/18 09:14 04/05/18 04:06 Al Hydroxide/Mg Hydroxide (Mylanta II) 30 ml Q6H PRN ORAL dyspepsia 04/02/18 09:15 05/02/18 09:14 04/05/18 05:10 Ceftriaxone Sodium 1 gm/ Dextrose 55 ml @ 110 mls/hr Q24H IVPB 04/02/18 18:00 04/09/18 17:59 04/06/18 18:11 Dextrose (Dextrose 50%) 25 ml Q30M PRN IV Hypoglycemia 04/02/18 09:15 05/02/18 09:14 Dextrose (Dextrose 50%) 50 ml Q30M PRN IV Hypoglycemia 04/02/18 09:15 05/02/18 09:14 Dextrose/ Electrolytes 1,000 ml @ 75 mls/hr [id number] IV 04/06/18 14:00 05/06/18 13:59 04/07/18 04:16 Diphenhydramine HCl (Benadryl) 25 mg Q6H PRN ORAL Itching/Pruritis 04/02/18 09:15 05/02/18 09:14 04/04/18 03:37 Haloperidol Lactate (Haldol) 2 mg Q2H PRN IM Restlessness 04/02/18 17:45 05/02/18 17:44 04/04/18 09:14 Heparin Sodium (Porcine) (Heparin 5000 units/ml) 5,000 units EVERY 12 HOURS SUBQ 04/02/18 21:00 05/02/18 20:59 04/07/18 09:58 Metoclopramide HCl (Reglan) 10 mg EVERY 8 HOURS ORAL 04/05/18 14:00 05/05/18 13:59 04/06/18 14:05 Metronidazole 100 ml @ 100 mls/hr Q8HR IVPB 04/07/18 06:00 04/14/18 05:59 04/07/18 05:51 Mirtazapine (Remeron) 7.5 mg BEDTIME ORAL 04/04/18 21:00 05/04/18 20:59 04/05/18 20:29 Morphine Sulfate (Morphine Sulfate) 2 mg Q4H PRN IVP severe Pain (Pain Scale 7-10) 04/02/18 09:15 04/09/18 09:14 04/06/18 16:20 Nitroglycerin (Ntg) 0.4 mg Q5M PRN SL Prn Chest Pain 04/02/18 09:15 05/02/18 09:14 Ondansetron HCl (Zofran) 4 mg Q4H PRN IVP Nausea & Vomiting 04/06/18 14:15 05/06/18 14:14 04/06/18 14:35 Pantoprazole (Protonix) 40 mg EVERY 12 HOURS IV 04/02/18 21:00 05/02/18 20:59 04/07/18 09:58 Polyethylene Glycol (Miralax) 17 gm HSPRN PRN ORAL Constipation 04/02/18 09:15 05/02/18 09:14 Temazepam (Restoril) 30 mg HSPRN PRN ORAL Insomnia 04/04/18 14:15 04/09/18 09:14 04/07/18 01:59 Daniel Maria MD Apr 07, 2018 10:08
[2018-04-07 12:00] VITALS: BP 118/76
--- NOTE | 2018-04-07 12:55 | GI Progress Note ---
Assessment/Plan Problems: (1) Acute colitis ICD Codes: K52.9 - Noninfective gastroenteritis and colitis, unspecified SNOMED: 84299817, 236102024 (2) Intractable vomiting ICD Codes: R11.10 - Vomiting, unspecified SNOMED: 369895792 (3) Chronic nausea ICD Codes: R11.0 - Nausea SNOMED: 146478159 (4) Anemia ICD Codes: D64.9 - Anemia, unspecified SNOMED: 338367098 (5) Vomiting ICD Codes: R11.10 - Vomiting, unspecified SNOMED: 950402823 Status: unchanged Status Narrative Discussed with Dr. Brown Assessment/Plan C. difficile negative Abdominal pelvic CT taken, final read still pending EGD canceled, patient refused okay for DC per GI standpoint zofran prn, provides only temporary relief reglan ATC ppi avoid cannabinoids tobacco cessation education given fu labs The patient was seen and examined at bedside and all new and available data was reviewed in the patients chart. I agree with the above findings, impression and plan. (Patient seen earlier today. Signature stamp does not reflect patient encounter time.). - Santos Brown MD Subjective Subjective Patient refusing EGD Wants to be discharged Objective Last 24 Hour Vital Signs Date Time Temp Pulse Resp B/P (MAP) Pulse Ox O2 Delivery O2 Flow Rate FiO2 04/07/18 04:00 99.0 85 20 104/63 (77) 98 04/07/18 00:56 98.9 67 20 119/72 (88) 99 04/06/18 21:00 Room Air 04/06/18 20:00 98.6 75 20 123/74 (90) 99 04/06/18 16:00 100.0 18 161/85 (110) 97 Intake and Output 04/06/18 04/07/18 19:00 07:00 Intake Total 255 ml 1105 ml Output Total 5 ml Balance 250 ml 1105 ml Intake Oral 180 ml 350 ml IV Total 75 ml 755 ml Output Emesis 5 ml # Voids 2 4 # Bowel Movements 3 Laboratory Tests Test 04/07/18 05:30 White Blood Count 5.7 K/UL (4.8-10.8) Red Blood Count 4.00 M/UL (4.20-5.40) L Hemoglobin 11.4 G/DL (12.0-16.0) L Hematocrit 34.4 % (37.0-47.0) L Mean Corpuscular Volume 86 FL (80-99) Mean Corpuscular Hemoglobin 28.5 PG (27.0-31.0) Mean Corpuscular Hemoglobin Concent 33.2 G/DL (32.0-36.0) Red Cell Distribution Width 11.2 % (11.6-14.8) L Platelet Count 186 K/UL (150-450) Mean Platelet Volume 8.3 FL (6.5-10.1) Neutrophils (%) (Auto) 59.8 % (45.0-75.0) Lymphocytes (%) (Auto) 28.0 % (20.0-45.0) Monocytes (%) (Auto) 6.5 % (1.0-10.0) Eosinophils (%) (Auto) 4.5 % (0.0-3.0) H Basophils (%) (Auto) 1.2 % (0.0-2.0) Prothrombin Time 11.4 SEC (9.30-11.50) Prothromb Time International Ratio 1.1 (0.9-1.1) Activated Partial Thromboplast Time 29 SEC (23-33) Sodium Level 141 MMOL/L (136-145) Potassium Level 3.3 MMOL/L (3.5-5.1) L Chloride Level 106 MMOL/L (98-107) Carbon Dioxide Level 29 MMOL/L (21-32) Anion Gap 6 mmol/L (5-15) Blood Urea Nitrogen 3 mg/dL (7-18) L Creatinine 0.8 MG/DL (0.55-1.30) Estimat Glomerular Filtration Rate > 60 mL/min (>60) Glucose Level 85 MG/DL (74-106) Calcium Level 8.4 MG/DL (8.5-10.1) L Height (Feet): 5 Height (Inches): 6.00 Weight (Pounds): 140 General Appearance: WD/WN, no apparent distress, alert Cardiovascular: normal rate Respiratory/Chest: normal breath sounds, no respiratory distress Abdominal Exam: normal bowel sounds, non tender, soft Extremities: normal range of motion, non-tender Vianey Masterson NP Apr 07, 2018 12:55
[2018-04-07] MEDS ORDERED: Tubing IV Secondary IV ONE (16:24)
--- NOTE | 2018-04-08 11:31 | Discharge Summary ---
Discharge Summary Discharge Summary _ DATE OF ADMISSION: 04/02/2018 DATE OF DISCHARGE: 04/07/2018 DISCHARGED BY: Dr Joseph REASON FOR ADMISSION: 42 years old female with past medical history of pancreatitis , hyperthyroidism , anxiety and chronic abdominal pain presented with chief complaint of abdominal pain with nausea and vomiting. Pain described as diffused, severe. Patient noted specks of blood in her emesis. Patient also complained of diarrhea, no blood in stool She denied fever, chills , she reported being anxious. Laboratory workup revealed leukocytosis WBC 20.9, stable hemoglobin, hematocrit ,potassium 3.2 . Urine toxicology screen was positive for marijuana. CT of the abdomen and pelvis revealed diffuse colitis Patient was admitted for further management CONSULTANTS: pulmonary Dr. Quinonez ID specialist Dr. Moncada GI specialist Dr. Brown co op Dr. Hickman [facility] COURSE: Patient admitted to medical surgical floor . Patient started on the IV hydration. Empiric antibiotic for colitis provided as per infectious disease doctor recommendation. Patient started on PPI. Antiemetic provided with Reglan [id number] and Zofran as needed. Stool for C. difficile was negative, and stool culture revealed Velvet . Patient was counseled to avoid cannabinoids. Diet was slowly introduced as tolerated. Patient was followed-up with WBC count and temperatures. HIV test was nonreactive. Low-grade fevers resolved. Leukocytosis resolved. Per Infectious disease, patient will need to complete oral antibiotics at home to finish 10-day course. Hemoglobin and hematocrit were closely monitored and remained stable. Prior to discharge hemoglobin 11.4, hematocrit Stool for occult blood was negative. Initially EGD was planned , but it was canceled because patient refused. Electrolytes were corrected . Nephrotoxins were avoided, and renal parameters were closely monitored. Tobacco cessation education provided. Leukocytosis resolved, patient remained afebrile. Abdominal pain controlled. Patient able to tolerate diet. Patient was stable for discharge home, FINAL DIAGNOSES: Acute colitis Abdominal pain with intractable vomiting ( likely due to acute colitis) Chronic abdominal pain Persistent hypokalemia ( due to intractable vomiting) History of pancreatitis Anxiety DISCHARGE MEDICATIONS: See Medication Reconciliation list. DISCHARGE INSTRUCTIONS: Patient was discharged home . Follow up with primary care provider in one week. I have been assigned to dictate discharge summary for this account. I was not involved in the patient's management. Lawanda Joyce NP Apr 08, 2018 11:31
== END 2018-04-07 16:20 | disposition home or self-care (01) | DRG 249 ==
LOC: EMR 04:53 → EDBEDREQ 07:15 → 3E 11:12
DX: K52.9 Noninfective gastroenteritis and colitis, unspecified (principal); D64.9 Anemia, unspecified; R11.2 Nausea with vomiting, unspecified; I10 Essential (primary) hypertension; E87.6 Hypokalemia; F41.0 Panic disorder [episodic paroxysmal anxiety]; E05.90 Thyrotoxicosis, unspecified without thyrotoxic crisis or storm; F12.90 Cannabis use, unspecified, uncomplicated; Z72.0 Tobacco use; D72.829 Elevated white blood cell count, unspecified
CPT/HCPCS: 36415; 74176; 80048; 80053; 80307; 81025; 82150; 82270; 83690; 85007; 85025; 85610; 85730; 86703; 86710; 87045; 87324; 96361; 96365; 96375; 96376; 97803; 99285; J2405; J8499

== ENCOUNTER 2019-01-13 10:37 | Emergency (ER) | payer SELFPAY ==
[~2019-01-13] VITALS: Ht 167.6 cm; Wt 65.8 kg
[~2019-01-13 10:37] MED LIST changes: +FLAGYL500 MG ORAL; +LEVOFLOXACIN500 MG ORAL
[2019-01-13 11:00] VITALS: BP 113/84
--- NOTE | 2019-01-13 11:01 | NUR ---
ED Nurse Note:pt. came with injury to left thumb from being jemmed by car door today , finger looks swallen skin is intact
--- NOTE | 2019-01-13 11:25 | Emergency Room Report ---
History of Present Illness General Chief Complaint: Pain Source: Patient, Medical Record Present Illness HPI Patient presents with complaints of injury to the left thumb reports that a car door slammed on her thumb about 30 minutes prior to arrival and she has pain to the distal aspect of the thumb Denies any wrist pain denies any other trauma to the elbow Denies any head injury pain is 8 out of 10 sharp and worse with touch Allergies: Coded Allergies: No Known Allergies (Unverified , 01/01/13) Patient History Past Medical History: see triage record Last Menstrual Period: 01/10/2019 Now: No : 3 Para: 3 Reviewed Nursing Documentation: PMH: Agreed; PSxH: Agreed Nursing Documentation-PMH Hx Cardiac Problems: No Hx Hypertension: No Hx Pacemaker: No Hx Asthma: No Hx COPD: No Hx Diabetes: No Hx Cancer: No Hx Gastrointestinal Problems: Yes - Gastroenteritis,Pancreatitis Hx Dialysis: No Hx Neurological Problems: No Hx Cerebrovascular Accident: No Hx Seizures: No Review of Systems All Other Systems: negative except mentioned in HPI Physical Exam Vital Signs Date Time Temp Pulse Resp B/P (MAP) Pulse Ox O2 Delivery O2 Flow Rate FiO2 01/13/19 10:48 98.4 95 18 113/84 (94) 96 Room Air Sp02 EP Interpretation: reviewed, normal General Appearance: other - In acute pain Head: normocephalic, atraumatic Eyes: bilateral eye PERRL, bilateral eye EOMI ENT: normal pharynx Neck: supple Respiratory: lungs clear, normal breath sounds Cardiovascular #1: regular rate, rhythm Musculoskeletal: swelling - And erythema noted to the distal left thumb there is a very small subungual hematoma proximally Neurologic: alert, oriented x3 Skin: other - As above Procedures Splinting Splinting : Consent: Verbal Location: Left thumb Pre-Made Type: metal Hand-Made Type: finger splint Pre-Proc Neuro Vasc Exam: normal Post-Proc Neuro Vasc Exam: normal Patient Tolerated: Well Complications: None Medical Decision Making Diagnostic Impression: Primary Impression: Finger fracture ER Course Given the above history exam and findings x-ray imaging is obtained There does appear to be a tuft fracture on the thumb Patient has splint applied orthopedic outpatient referral has been provided Reevaluation of the subungual hematoma reveals a very small area which at this time is not appropriate for further intervention and patient will have close outpatient follow-up Other X-Ray Diagnostic Results Other X-Ray Diagnostic Results : X-Ray ordered: Left thumb # of Views/Limited Vs Complete: 3 View Indication: Pain EP Interpretation: Yes Interpretation: no dislocation, other - Mild soft tissue swelling distal thumb fracture Impression: Other - Tuft fracture left thumb Electronically Signed by: Serena Sanchez DO Last Vital Signs Date Time Temp Pulse Resp B/P (MAP) Pulse Ox O2 Delivery O2 Flow Rate FiO2 01/13/19 11:00 98.4 85 18 113/84 96 Room Air Status: improved Disposition: HOME, SELF-CARE Condition: Improved Scripts Ibuprofen* (MOTRIN*) 600 Mg Tablet 600 MG ORAL Q8H PRN for For Pain, #20 TAB 0 Refills Prov: Serena Sanchez DO 01/13/19 Additional Instructions: Patient is provided with the discharge instructions notified to follow up with primary doctor in the next 2-3 days otherwise return to the er with any worsening symptoms. Please note that this report is being documented using mobile [employer] technology. This can lead to erroneous entry secondary to incorrect interpretation by the dictating instrument. Serena Sanchez DO Jan 13, 2019 11:25
--- NOTE | 2019-01-13 11:41 | Diagnostic Imaging Report ---
ADDENDUM - Added by Elsy Reyna M.D. on 01 13 2019 12:34 PM (-08:00) CORRECTION: Nondisplaced fracture in the distal tuft of the left first distal phalanx. Associated more prominent soft tissue swelling. EXAM: XR Left Hand Complete, 3 or More Views CLINICAL HISTORY: TRAUMA TECHNIQUE: Frontal, lateral and oblique views of the left hand. COMPARISON: None FINDINGS: Bones joints: No displaced fracture or dislocation identified. Joint space is maintained. Osteopenia. Soft tissues: Mild soft tissue prominence in the digits. IMPRESSION: No displaced fracture or dislocation identified. <MYCVCSECTION> [employer] 01 13 19 12:37 Call From [facility] Serena Sanchez MD on 01 13 12:32 (-08: 00)
[2019-01-13] MEDS ORDERED: IBUPROFEN600 MG ORAL (12:18)
[2019-01-13 12:29] VITALS: BP 120/80
== END 2019-01-13 12:29 | disposition home or self-care (01) ==
LOC: EMR 11:30
DX: S69.92XA Unspecified injury of left wrist, hand and finger(s), initial encounter (principal); S60.112A Contusion of left thumb with damage to nail, initial encounter; W23.0XXA Caught, crushed, jammed, or pinched between moving objects, initial encounter; Y92.9 Unspecified place or not applicable
CPT/HCPCS: 99283

== ENCOUNTER 2019-05-14 06:52 | Emergency (ER) | payer MEDICAID ==
[~2019-05-14] VITALS: Ht 167.6 cm; Wt 66.2 kg
[2019-05-14 07:06] VITALS: BP 126/75
--- NOTE | 2019-05-14 07:14 | Emergency Room Report ---
History of Present Illness General Chief Complaint: Nausea Source: Patient Present Illness HPI Patient is a 43-year-old female past medical history of diverticulosis, anxiety who presents to the ER complaining of abdominal pain, nausea, vomiting, diarrhea and panic attack. Patient states that starting last night she started having sharp abdominal pain with nonbilious nonbloody vomitus and nonbloody diarrhea. She denies any fever or chills. She denies any recent travel. She denies any dysuria or hematuria. Patient states that she was supposed to fly to [place] today for work. Patient also states that she has had some life changes that have triggered her anxiety. She states that she used to be on Xanax but does not have anymore because she has not had a panic attack in a while. She denies any chest pain but complains of shortness of breath as well as paresthesias. COVID-19 risk:Travel to [facility]: No Allergies: Coded Allergies: No Known Allergies (Unverified , 01/01/13) Patient History Past Medical History: other - Diverticulosis, anxiety Past Surgical History: none Social History: Reports: smoking, alcohol use Nursing Documentation-PMH Hx Cardiac Problems: No Hx Hypertension: No Hx Pacemaker: No Hx Asthma: No Hx COPD: No Hx Diabetes: No Hx Cancer: No Hx Gastrointestinal Problems: Yes - Gastroenteritis,Pancreatitis Hx Dialysis: No Hx Neurological Problems: No Hx Cerebrovascular Accident: No Hx Seizures: No Review of Systems All Other Systems: negative except mentioned in HPI Physical Exam Vital Signs Date Time Temp Pulse Resp B/P (MAP) Pulse Ox O2 Delivery O2 Flow Rate FiO2 05/14/19 06:55 97.9 86 20 126/75 (92) 97 Room Air Sp02 EP Interpretation: reviewed, normal General Appearance: no apparent distress, alert, GCS 15, non-toxic Head: normocephalic, atraumatic Eyes: bilateral eye normal inspection, bilateral eye PERRL ENT: hearing grossly normal, normal pharynx, no angioedema, normal voice Neck: full range of motion, supple/symm/no masses Respiratory: chest non-tender, lungs clear, normal breath sounds, speaking full sentences, other - Tachypneic Cardiovascular #1: regular rate, rhythm, no edema Gastrointestinal: other - Periumbilical and epigastric tenderness to palpation with no guarding or rebound Rectal: deferred Genitourinary: normal inspection, no CVA tenderness Musculoskeletal: back normal, normal range of motion, calf tenderness, gait/ station normal, non-tender Neurologic: alert, motor strength/tone normal, oriented x3, sensory intact, responsive, speech normal Psychiatric: judgement/insight normal, memory normal, mood/affect normal, no suicidal/homicidal ideation, anxious Skin: no rash Lymphatic: no adenopathy Medical Decision Making Diagnostic Impression: Primary Impression: Gastroenteritis Additional Impressions: Pancreatitis, acute Anxiety ER Course Patient is afebrile. She has no elevated white blood cell count. Lipase is mildly elevated at 500. Patient given Zofran IV as well as Protonix. On reexamination her abdominal pain has improved. Patient given IV Ativan which resolved her anxiety attack. Patient has mild pancreatitis consistent with her past likely due to alcohol. Patient CT demonstrates diverticulosis with no evidence of diverticulitis. Patient given prescription for Zofran as well as Pepcid. Advised to refrain from excessive alcohol consumption. After discussing risks and benefits of further diagnostics, treatment plans, as well as indications for and risks of admission, the patient is agreeable to being discharged home. I have explained that their evaluation and treatment in the emergency department today is an important step towards them achieving better health but that their evaluation today is not intended to replace further evaluation and treatment by a physician in their local clinic. I have explained that while the current findings suggest no immediate life threatening emergency they will require further evaluation and treatment by a physician of their choice in their area. They understand that it will be necessary for them to review the final reports of their ED visit with their clinic physician. We have reviewed indications for return to the Emergency Department. I have explained that additional time may need to pass and/or additional testing as an outpatient may be necessary before a definitive diagnosis can be made. They tell me they are willing to follow up as instructed within the timeframe I recommend. They appear to understand what we discussed. Additionally they understand that if they are unable to be seen by an outpatient physician they are welcome, and in fact should, return to the Emergency Department for a repeat evaluation. The patient is stable at time of discharge. Laboratory Tests Test 05/14/19 07:07 White Blood Count 12.7 K/UL (4.8-10.8) H Red Blood Count 4.70 M/UL (4.20-5.40) Hemoglobin 13.4 G/DL (12.0-16.0) Hematocrit 39.6 % (37.0-47.0) Mean Corpuscular Volume 84 FL (80-99) Mean Corpuscular Hemoglobin 28.6 PG (27.0-31.0) Mean Corpuscular Hemoglobin Concent 33.9 G/DL (32.0-36.0) Red Cell Distribution Width 11.5 % (11.6-14.8) L Platelet Count 249 K/UL (150-450) Mean Platelet Volume 6.5 FL (6.5-10.1) Neutrophils (%) (Auto) 69.8 % (45.0-75.0) Lymphocytes (%) (Auto) 22.6 % (20.0-45.0) Monocytes (%) (Auto) 5.4 % (1.0-10.0) Eosinophils (%) (Auto) 0.7 % (0.0-3.0) Basophils (%) (Auto) 1.5 % (0.0-2.0) Urine Color Yellow Urine Appearance Clear Urine pH 5 (4.5-8.0) Urine Specific [place] 1.025 (1.005-1.035) Urine Protein 1+ (NEGATIVE) H Urine Glucose (UA) Negative (NEGATIVE) Urine Ketones 1+ (NEGATIVE) H Urine Blood 2+ (NEGATIVE) H Urine Nitrite Negative (NEGATIVE) Urine Bilirubin Negative (NEGATIVE) Urine Urobilinogen Normal MG/DL (0.0-1.0) Urine Leukocyte Esterase 1+ (NEGATIVE) H Urine RBC 2-4 /HPF (0 - 2) H Urine WBC 0-2 /HPF (0 - 2) Urine Squamous Epithelial Cells Few /LPF (NONE/OCC) Urine Amorphous Sediment Few /LPF (NONE) H Urine Bacteria Few /HPF (NONE) Urine Mucus Few /LPF (NONE/OCC) H Urine HCG, Qualitative Negative (NEGATIVE) Sodium Level 144 MMOL/L (136-145) Potassium Level 3.9 MMOL/L (3.5-5.1) Chloride Level 108 MMOL/L (98-107) H Carbon Dioxide Level 20 MMOL/L (21-32) L Anion Gap 17 mmol/L (5-15) H Blood Urea Nitrogen 17 mg/dL (7-18) Creatinine 0.9 MG/DL (0.55-1.30) Estimate Glomerular Filtration Rate > 60 mL/min (>60) Glucose Level 123 MG/DL (74-106) H Calcium Level 9.7 MG/DL (8.5-10.1) Magnesium Level 1.4 MG/DL (1.8-2.4) L Total Bilirubin 0.4 MG/DL (0.2-1.0) Aspartate Amino Transferase (AST) 23 U/L (15-37) Alanine Aminotransferase (ALT) 33 U/L (12-78) Alkaline Phosphatase 135 U/L (46-116) H Total Protein 8.2 G/DL (6.4-8.2) Albumin 4.3 G/DL (3.4-5.0) Globulin 3.9 g/dL Albumin/Globulin Ratio 1.1 (1.0-2.7) Lipase 579 U/L (73-393) H Last Vital Signs Date Time Temp Pulse Resp B/P (MAP) Pulse Ox O2 Delivery O2 Flow Rate FiO2 05/14/19 07:06 97.9 87 20 126/75 97 Room Air Disposition: HOME, SELF-CARE Condition: Stable Scripts Famotidine* (Pepcid 20mg tablet*) 20 Mg Tablet 20 MG ORAL DAILY, #30 TAB 0 Refills Prov: Lalita Cid M.D. 05/14/19 Ondansetron (Zofran) 4 Mg Tablet 4 MG ORAL Q6H PRN for Nausea & Vomiting, #10 TAB Prov: Lalita Cid M.D. 05/14/19 Referrals: NON PHYSICIAN (PCP) Additional Instructions: The patient was provided with discharge instructions, notified to follow-up with a primary care doctor and or specialist in the next 24-48 hours, and to return to the ED if they have worsening of their symptoms. Please note that this report is being documented using [employer] technology. This can lead to erroneous entry secondary to incorrect interpretation by the dictating instrument. Lalita Cid M.D. May 14, 2019 07:14
[2019-05-14] MEDS ORDERED: LORazepam Inj 2mg/ml 1ml IV ONE (07:15)
[2019-05-14] MEDS ORDERED: Pantoprazole Inj IV ONE (07:15)
[2019-05-14 07:29] LABS: APPEARANCE,URINE CLEAR; BILIRUBIN, URINE NEGATIVE (NEGATIVE); GLUCOSE, URINE (UA) NEGATIVE (NEGATIVE); KETONES,URINE 1+ (NEGATIVE); LEUKOCYTE ESTERASE ,URINE 1+ (NEGATIVE); NITRITE,URINE NEGATIVE (NEGATIVE); PH,URINE 5 (4.5-8.0); PROTEIN,URINE 1+ (NEGATIVE); UROBILINOGEN,URINE NORMAL MG/DL (0.0-1.0)
[2019-05-14 07:31] LABS: COLOR,URINE YELLOW
[2019-05-14 07:39] LABS: ANION GAP 17 mmol/L (5-15); BLOOD UREA NITROGEN 17 mg/dL (7-18); CALCIUM 9.7 MG/DL (8.5-10.1); CARBON DIOXIDE 20 MMOL/L (21-32); CHLORIDE 108 MMOL/L (98-107); CREATININE 0.9 MG/DL (0.55-1.30); POTASSIUM 3.9 MMOL/L (3.5-5.1); SODIUM 144 MMOL/L (136-145)
[2019-05-14 07:43] LABS: ALANINE AMINOTRANSFERASE 33 U/L (12-78); ALBUMIN 4.3 G/DL (3.4-5.0); ALBUMIN/GLOBULIN RATIO 1.1 (1.0-2.7); ALKALINE PHOSPHATASE 135 U/L (46-116); ASPARTATE AMINO TRANSFERASE 23 U/L (15-37); BILIRUBIN,TOTAL 0.4 MG/DL (0.2-1.0)
[2019-05-14 07:47] LABS: BASOPHILS % (AUTO) 1.5 % (0.0-2.0); EOSINOPHILS % (AUTO) 0.7 % (0.0-3.0); HEMATOCRIT 39.6 % (37.0-47.0); HEMOGLOBIN 13.4 G/DL (12.0-16.0); LYMPHOCYTES % (AUTO) 22.6 % (20.0-45.0); MEAN CORPUSCULAR VOLUME 84 FL (80-99); MONOCYTES % (AUTO) 5.4 % (1.0-10.0); NEUTROPHILS % (AUTO) 69.8 % (45.0-75.0); PLATELET COUNT 249 K/UL (150-450); RED CELL DISTRIBUTION WIDTH 11.5 % (11.6-14.8); WHITE BLOOD COUNT 12.7 K/UL (4.8-10.8)
--- NOTE | 2019-05-14 09:05 | Diagnostic Imaging Report ---
Indication: Abdominal pain, nausea, vomiting, diarrhea Technique: Spiral acquisitions obtained through the abdomen and pelvis. No oral contrast utilized, per emergency room physician request No IV contrast utilized, per referring physician request.. Multiplanar reconstructions were generated. Total dose length product 244 mGycm. CTDIvol(s) 4 mGy. Dose reduction achieved using automated exposure control Comparison: 04/02/2018 Findings: Lack of enteric contrast limits assessment of the GI tract. The appendix is normal. There are a few colonic diverticula. Previous equivocal colon wall thickening is not evident currently. No evidence of acute diverticulitis. Small bowel loops are diffusely mildly prominent in caliber, but no joanne small bowel distention is demonstrated. Appearance of the small bowel is similar to the previous study. No free or loculated intraperitoneal gas or fluid is evident. The distal esophagus, stomach, duodenum are unremarkable Lack of IV contrast limits assessment of the solid organs. The liver, gallbladder, bile ducts, pancreas, spleen, adrenals, kidneys are unremarkable. No retroperitoneal or mesenteric mass or adenopathy. No pelvic mass or adenopathy. Uterus and adnexal structures appear unremarkable. The included lung bases demonstrate a cystic space in the right lower lobe. This was not included in the prior imaging volume. There is also cystic space in the left lower lobe another in the lingula, also evident previously. Dependent atelectatic changes are seen on the left. Previously demonstrated focal peripheral opacity in the right lower lobe is no longer evident. The bones demonstrate mild degenerative disc changes at the lumbosacral junction. Impression: Limited assessment of the GI tract, due to lack of enteric contrast demonstration. Minimally prominent left upper quadrant small bowel loops. Similar appearance to prior study suggest that this is baseline for this patient, but could also indicate mild enteritis changes. Colonic diverticulosis. No evidence of acute diverticulitis Basilar pulmonary parenchymal small air cysts, nonspecific, could indicate prior insult or could be small bullae related to COPD changes Mild degenerative spondylosis The CT scanner at [facility] is accredited by the [employer] and the scans are performed using protocols designed to limit radiation exposure to as low as reasonably achievable to attain images of sufficient resolution adequate for diagnostic evaluation.
[2019-05-14 09:10] VITALS: BP 128/76
[2019-05-14] MEDS ORDERED: ZOFRAN4 M1 ORAL (09:12)
[2019-05-14] MEDS ORDERED: FAMOTIDINE20 MG ORAL (09:13)
[2019-05-14 09:21] VITALS: BP 124/74
== END 2019-05-14 09:21 | disposition home or self-care (01) ==
LOC: EMR 07:05
DX: K52.9 Noninfective gastroenteritis and colitis, unspecified (principal); K85.90 Acute pancreatitis without necrosis or infection, unspecified; F41.9 Anxiety disorder, unspecified
CPT/HCPCS: 36415; 74176; 80053; 81003; 81025; 83690; 83735; 85025; 96361; 96374; 96375; J2405; J7030; S0164; Z7502; 99284